=== PATIENT | female | born 1950 | race African-American/Black ===

== ENCOUNTER 2017-10-30 10:42 | Emergency (ER) | payer MEDICARE, MEDICAID ==
--- NOTE | 2017-10-30 13:03 | RAD ---
ONE VIEW ABDOMEN: HISTORY: PEG tube placement. COMPARISON: 01/30/2015 FINDINGS: Single view abdomen demonstrates opacification of the stomach, after the administration of Gastrograf in via a PEG tube. A large calcification in the right upper quadrant is redemonstrated and is presumed to be a gallstone . There is a scattered amount of fecal material. Correlate for constipation. IMPRESSION: 1. Contrast opacification of the stomach via the percutaneous endoscopic gastrostomy tube. 2. Constipation. 3. Possible large gallstone in the right upper quadrant. POS: [facility]
== END 2017-10-30 13:30 | disposition home or self-care (01) ==
LOC: ERS 10:42
DX: Z43.1 Encounter for attention to gastrostomy (principal); K59.00 Constipation, unspecified; K21.9 Gastro-esophageal reflux disease without esophagitis; I69.320 Aphasia following cerebral infarction; E11.9 Type 2 diabetes mellitus without complications; E78.5 Hyperlipidemia, unspecified; I10 Essential (primary) hypertension; G40.909 Epilepsy, unspecified, not intractable, without status epilepticus; F41.9 Anxiety disorder, unspecified; F32.9 Major depressive disorder, single episode, unspecified; D51.9 Vitamin B12 deficiency anemia, unspecified; Z79.82 Long term (current) use of aspirin; Z79.02 Long term (current) use of antithrombotics/antiplatelets; Z79.84 Long term (current) use of oral hypoglycemic drugs; Z79.899 Other long term (current) drug therapy
CPT/HCPCS: 43760; 74018

== ENCOUNTER 2018-07-24 11:43 | Emergency (ER) | payer MEDICARE, MEDICAID ==
--- NOTE | 2018-07-24 13:29 | RAD ---
ABDOMEN 1 VIEW: Date: 07/24/18 HISTORY: 68-year-old female with history of PEG tube evaluation. COMPARISON: 10/30/17. FINDINGS: Contrast media was introduced through the PEG tube, which enters the stomach. Stable large calcificat ion right upper quadrant. Solid fecal material in the colon with dilated rectum, evidence for obstipa tion. IMPRESSION: Contrast media introduced through the PEG tube enters the stomach. Evidence for obstipation with dila derrick fecal-filled rectum. Stable right upper quadrant calcification. POS: [facility]
== END 2018-07-24 13:58 | disposition home or self-care (01) ==
LOC: ERS 11:43
DX: Z43.1 Encounter for attention to gastrostomy (principal); D64.9 Anemia, unspecified; K21.9 Gastro-esophageal reflux disease without esophagitis; Z86.73 Personal history of transient ischemic attack (TIA), and cerebral infarction without residual deficits; E11.9 Type 2 diabetes mellitus without complications; E78.5 Hyperlipidemia, unspecified; I10 Essential (primary) hypertension; D51.9 Vitamin B12 deficiency anemia, unspecified; G40.909 Epilepsy, unspecified, not intractable, without status epilepticus; F41.9 Anxiety disorder, unspecified; F32.9 Major depressive disorder, single episode, unspecified; Z79.899 Other long term (current) drug therapy; Z79.82 Long term (current) use of aspirin; Z79.84 Long term (current) use of oral hypoglycemic drugs
CPT/HCPCS: 74018; A4353

== ENCOUNTER 2018-11-02 06:16 | Emergency (ER) | payer MEDICARE, MEDICAID ==
--- NOTE | 2018-11-02 09:08 | RAD ---
ABDOMEN 1 VIEW TUBE CHECK: DATE: 11/02/2018. HISTORY: Evaluation for PEG tube replacement as PEG tube was inadvertently removed. FINDINGS: A single AP abdominal radiograph is submitted. Gastrostomy tube is noted in place with the limb port ion of the tube appearing to be within the region of the pylorus of the stomach. Contrast injection demonstrates contrast within the duodenum and loops of proximal jejunum. Large calcification overlyi ng the right upper quadrant is again seen and shown to represent a gallbladder calculus on prior CT e xams. The bowel gas pattern is nonspecific. There is moderately large amount of retained fecal material se en overlying the region of the rectum. Phleboliths and vascular calcifications overlie the pelvis. IMPRESSION: 1. Gastrostomy tube noted in place with distal tip seen in the region of the most distal aspect pylo jose of the stomach. Contrast injection demonstrates contrast within the duodenum and proximal jejunu m. There is no extravasation of contrast seen. 2. Calcification in the right upper quadrant shown to represent gallbladder calculus. 3. Moderate to large amount of retained fecal material within the rectum. POS: [facility]
== END 2018-11-02 11:42 ==
LOC: ERS 06:16
DX: Z43.1 Encounter for attention to gastrostomy (principal); K21.9 Gastro-esophageal reflux disease without esophagitis; I10 Essential (primary) hypertension; D51.9 Vitamin B12 deficiency anemia, unspecified; G40.909 Epilepsy, unspecified, not intractable, without status epilepticus; F41.9 Anxiety disorder, unspecified; F32.9 Major depressive disorder, single episode, unspecified; Z79.899 Other long term (current) drug therapy; Z79.84 Long term (current) use of oral hypoglycemic drugs; Z79.82 Long term (current) use of aspirin
CPT/HCPCS: 43762; 76000

== ENCOUNTER 2018-12-03 17:49 | Inpatient (IN) | payer MEDICARE, MEDICAID ==
[~2018-12-03 17:49] MED LIST: ISOVUE-370 76%-LOCM 1 ML ONE
[2018-12-03] MEDS ORDERED: Acetaminophen 650 MG Suppository ONE (19:00)
[2018-12-03] MEDS ORDERED: Ondansetron PF 4 MG/2 ML Vial ONE (19:00)
[2018-12-03 19:01] LABS: Bilirubin Negative (Negative); Blood, Urine Trace (Negative); Clarity CLEAR (Clear); Glucose, Urine (Dipstick) 500 mg/dL (Negative); Leukocyte Negative (Negative); Nitrite Negative (Negative); Protein, Urine (Dipstick) 100 mg/dL (Neg-Trace); Specific Gravity, Urine 1.015 (1.002-1.036); Urobilinogen 0.2 mg/dL (0.2-1.0); pH, Urine 6.5 (5.0-9.0)
[2018-12-03 19:02] LABS: Bacteria/HPF None Seen HPF (None Seen); Hyaline Casts/LPF 7-10 HYALINE CAST LPF (0-3 Hyaline); Pathc Cast-AUWi Flag 2.47 (0-2.49); RBC/HPF 0-3 HPF (0-3); Squamous Epithelial 0-3 HPF (0-3); WBC/HPF 0-3 HPF (0-3)
[2018-12-03 19:03] LABS: Hemoglobin 15.3 g/dL (12.0-16.0); Mean Corpuscular HGB CONC 30.6 g/dL (32.0-36.0); Mean Corpuscular Hemoglobin 22.2 pg (27.0-31.0); Mean Corpuscular Volume 72.5 fL (78.0-98.0); Mean Platelet Volume 14.2 fL (7.4-10.4); Platelet Count 209 thou/uL (130-400); RBC Distribution Width 14.7 % (11.5-14.5); Red Blood Cell (RBC) Count 6.91 mill/uL (4.20-5.40); White Blood Cell (WBC) Count 17.2 thou/uL (4.8-10.8)
[2018-12-03 19:21] LABS: Anisocytosis SLIGHT = 6-15 cells (100X) (0-5/hpf); Band 9 % (5-11); Lymphocytes 3 % (21-51); MDiff Complete? YES; Microcytosis SLIGHT = 6-15 cells (100X) (0-5/hpf); Monocytes 3 % (0-10); Neutrophil 85 % (42-75); Platelet Morphology Comment Appears Adequate
[2018-12-03 19:22] LABS: ALT (SGPT) 8 U/L (8-55); AST (SGOT) 19 U/L (5-34); Albumin 4.5 g/dL (3.4-4.8); Alkaline Phosphatase 105 U/L (40-150); Anion Gap 20 mmol/L (10-20); BUN (Urea Nitrogen) 32 mg/dL (9.8-20.1); Bilirubin, Total 0.5 mg/dL (0.2-1.2); Calc. Creatinine Clearance 0 mL/min (70-130); Calcium 11.2 mg/dL (7.8-10.44); Carbon Dioxide 26 mmol/L (23-31); Chloride 101 mmol/L (98-107); Estimated GFR-MDRD 51; Globulin 5.3 g/dL (2.4-3.5); Glucose 297 mg/dL (80-115); Potassium 5.5 mmol/L (3.5-5.1); Protein, Total 9.8 g/dL (6.0-8.3); Sodium 141 mmol/L (136-145)
[2018-12-03] MEDS ORDERED: Piperacillin/Tazobactam 4.5 GM VIAL ONE (19:32)
[2018-12-03 19:45] LABS: CKMB 0.7 ng/mL (0-6.6)
--- NOTE | 2018-12-03 20:26 | RAD ---
ONE VIEW CHEST: Comparison: 02-18-17 History: Fever. FINDINGS: Atherosclerosis of the aorta. Normal cardiac silhouette. The pulmonary vessels and hilum are normal. Costophrenic angles are clear. Lung volumes are diminished, without consolidation or mass. No pneumot horax or osseous abnormalities. IMPRESSION: No acute cardiopulmonary process. POS: [facility]
--- NOTE | 2018-12-03 21:22 | CT ---
CT ABDOMEN AND PELVIS WITH CONTRAST: History: Abdominal pain. Comparison: 10-19-14 FINDINGS: There is some mild atelectasis in the lung bases. No pericardial effusion. Cholelithiasis is present. No significant pericholecystic fluid. Moderate bilateral hydroureteronephrosis. There is massive dilatation of the urinary bladder and the hydronephrosis may be physiologic due to increased back pressure. There is also massive dilatation of the rectal vault measuring approximately 10 cm with large volume stool. No evidence of obstruction. Ostomy tube is in place. Celiac trunk and superior mesenteric arteries are patent. Advanced arthropathy of the lower lumbar sp ine. No acute osseous abnormality. Liver is unremarkable. Spleen is unremarkable. Pancreas is without acute abnormality. No retroperitoneal adenopathy. IMPRESSION: 1. Moderate bilateral hydroureteronephrosis likely physiologic due to the massive dilatation of the u rinary bladder. Tovar catheter decompression recommended. 2. Marked dilatation of the rectal vault measuring up to 10 cm with thin wall. Stool disimpaction rec ommended. 3. Cholelithiasis without CT evidence of acute cholecystitis. POS: [facility]
[2018-12-03 22:33] LABS: Troponin I 0.078 ng/mL (< 0.028)
[2018-12-03 22:56] LABS: Lactic Acid 3.9 mmol/L (0.5-2.2)
[2018-12-04 01:24] LABS: Troponin I 0.098 ng/mL (< 0.028)
[2018-12-04] MEDS ORDERED: Senokot S 8.6-50 MG TAB PO PRN (07:33)
[2018-12-04] MEDS ORDERED: Loperamide HCl 2 MG CAP PER TUBE PRN (07:44)
[2018-12-04] MEDS ORDERED: Milk Of Magnesia 30 ML UDCUP PER TUBE PRN (07:44)
[2018-12-04] MEDS ORDERED: Bisacodyl 10 MG SUPP PR PRN (07:44)
[2018-12-04] MEDS ORDERED: Ondansetron ORAL SOLN. 4 MG/5 ML UDCUP PER TUBE PRN (07:44)
[2018-12-04] MEDS ORDERED: Acetaminophen 325 MG TAB PER TUBE PRN (07:44)
[2018-12-04] MEDS ORDERED: Polyethylene Glycol 3350 17 GM Packet PER TUBE PRN (07:44)
[2018-12-04] MEDS ORDERED: Dextrose 50% Abboject 50 ML SYRINGE SLOW IVP PRN (08:06)
[2018-12-04] MEDS ORDERED: Dextrose 5% in Water 1,000 ML IV PRN (08:06)
[2018-12-04] MEDS ORDERED: VIT C PER TUBE SCH (09:00)
[2018-12-04] MEDS ORDERED: Lisinopril 10 MG TAB PER TUBE SCH (09:00)
[2018-12-04] MEDS ORDERED: ASCORBATE CALCIUM SODIUM PER TUBE SCH (09:00)
[2018-12-04] MEDS ORDERED: [UNRECOGNIZED DRUG - OTHER] PER TUBE SCH (09:00)
[2018-12-04] MEDS ORDERED: Vancomycin HCl 1 GM in Premix Bag 1 BAG IVPB SCH (09:00)
[2018-12-04] MEDS ORDERED: Non-Formulary Item 1 EACH (Cyanocobalamin (Vitamin B-12) [Vitamin B-12] 500 MCG) PER TUBE SCH (09:00)
[2018-12-04] MEDS ORDERED: Vancomycin HCl 1 GM in Sodium Chloride 0.9% 250 ML 250 ML IVPB SCH (09:00)
[2018-12-04] MEDS ORDERED: Aspirin 81 mg Enteric Coated Tablet PER TUBE SCH (09:00)
[2018-12-04] MEDS ORDERED: FERROUS SULFATE 220 MG PER TUBE SCH (09:00)
[2018-12-04] MEDS ORDERED: NUT TX GLUC INTOLER LAC FR SOY PER TUBE SCH (09:00)
[2018-12-04] MEDS ORDERED: SACCHAROMYCES BOULARDII 250 MG PER TUBE SCH (09:00)
[2018-12-04] MEDS ORDERED: Amlodipine 10 MG TAB PER TUBE SCH (09:00)
[2018-12-04] MEDS: metFORMIN 500 MG TAB PER TUBE SCH ×2 (09:02→17:42)
[2018-12-04] MEDS: Cyanocobalamin (Vitamin B-12) 1,000 MCG TAB PER TUBE SCH (09:02)
[2018-12-04] MEDS: Atorvastatin Calcium 10 MG TAB PER TUBE SCH (09:02)
[2018-12-04] MEDS: Sodium Chloride 0.9% 1,000 ML IV SCH ×2 (09:02→18:14)
[2018-12-04 09:03] LABS: #Lymphocytes 1.3 thou/uL (1.20-3.40); #Neutrophils 9.6 thou/uL (1.40-6.50); %Basophils 0.2 % (0.0-1.0); %Eosinophils 0.2 % (0.0-10.0); %Lymphocytes 10.9 % (21.0-51.0); %Monocytes 8.3 % (0.0-10.0); %Neutrophils 80.3 % (42.0-75.0); Hemoglobin 13.1 g/dL (12.0-16.0); Mean Corpuscular HGB CONC 29.5 g/dL (32.0-36.0); Mean Corpuscular Volume 74.5 fL (78.0-98.0); Mean Platelet Volume 13.7 fL (7.4-10.4); Platelet Count 172 thou/uL (130-400); RBC Distribution Width 14.4 % (11.5-14.5); Red Blood Cell (RBC) Count 5.95 mill/uL (4.20-5.40)
[2018-12-04] MEDS: Amlodipine 5 MG TAB PER TUBE SCH (09:03)
[2018-12-04] MEDS: Aspirin Chewable 81 MG TAB PER TUBE SCH (09:03)
[2018-12-04] MEDS: Pantoprazole 40 MG GRANULES PACKET PER TUBE SCH (09:03)
[2018-12-04] MEDS: Metoprolol Tartrate 100 MG TAB PER TUBE SCH ×2 (09:04→21:24)
[2018-12-04] MEDS: Lisinopril 20 MG TAB PER TUBE SCH (09:04)
[2018-12-04] MEDS: Saccharomyces boulardii 250 MG CAP PER TUBE SCH (09:04)
[2018-12-04] MEDS: Famotidine/PF 20 mg/2ml Vial SLOW IVP SCH ×2 (09:04→21:23)
[2018-12-04] MEDS: Loratadine 5 MG/5 ML UDCUP PER TUBE SCH (09:05)
[2018-12-04] MEDS: Ascorbic Acid 500 mg Chewable Tablet PER TUBE SCH ×2 (09:05→21:24)
[2018-12-04 09:21] LABS: Anion Gap 18 mmol/L (10-20); BUN (Urea Nitrogen) 37 mg/dL (9.8-20.1); Calc. Creatinine Clearance 32 mL/min (70-130); Calcium 10.2 mg/dL (7.8-10.44); Carbon Dioxide 25 mmol/L (23-31); Chloride 105 mmol/L (98-107); Estimated GFR-MDRD 46; Glucose 216 mg/dL (80-115); Potassium 4.6 mmol/L (3.5-5.1); Sodium 143 mmol/L (136-145)
[2018-12-04 09:44] LABS: Hypochromia SLIGHT = 6-15 cells (100X) (0-5/hpf); MDiff Complete? YES; Microcytosis SLIGHT = 6-15 cells (100X) (0-5/hpf); Platelet Morphology Comment Appears Adequate; Polychromasia SLIGHT = 2-3 cells (100X) (0-2/hpf)
--- NOTE | 2018-12-04 10:28 | HP ---
CHIEF COMPLAINTS: Vomiting, fever, and abdominal distention. HISTORY OF PRESENT ILLNESS: The patient is a 68-year-old female, [facility] resident from [facility], who was found to have fever yesterday at the [facility] up to 101. She started vomiting. She had abdominal distention and she was sent out to the emergency room for further evaluation. In the emergency room, she was found to have possible sepsis. She received vancomycin and Zosyn and IV fluids and she is getting admitted to the hospital for further management of her problem. PAST MEDICAL HISTORY: Positive for; 1. CVA. 2. Diabetes mellitus. 3. Hyperlipidemia. 4. Hypertension. 5. Vitamin B12 deficiency with anemia. 6. Failure to thrive. 7. Epilepsy. 8. Thrombocytopenia. 9. Hydronephrosis. 10. History of colitis. PAST SURGICAL HISTORY: 1. Cholecystectomy. 2. Hysterectomy. 3. Tubal ligation. 4. G-tube placement. PSYCHIATRIC HISTORY: Includes anxiety and major depressive disorder. SOCIAL HISTORY: [facility]. She does not smoke, drink, or take any illicit drugs. ALLERGIES: NONE. CURRENT MEDICATIONS: Please refer to the medications list. FAMILY HISTORY: Father of heart trouble in his 80s. Mother of CVA in her 80s too. Power of junior manufacturing engineer is Kurt Miranda. PRIMARY CARE PHYSICIAN: Dr. Campos. REVIEW OF SYSTEMS: Unobtainable secondary to the patient's aphasia from the previous stroke. PHYSICAL EXAMINATION: VITAL SIGNS: Blood pressure is 113/59, pulse is 89, temperature is 98.6, respiratory rate 15, and O2 saturation 100 on room air. GENERAL: She is not in any distress during my visit. HEENT: Head is atraumatic and normocephalic. Pupils are responding to light properly. Sclerae are nonicteric. Conjunctivae are somewhat palish. Oral mucosa is slightly dry. NECK: Supple. LUNGS: Clear. HEART: S1 and S2 normal. No S3. No S4. No any murmur. ABDOMEN: Soft, nontender, and nondistended. Bowel sounds are present. No organomegaly. EXTREMITIES: No clubbing, cyanosis, or edema. NEUROLOGIC: She follows my simple commands. She is able to move her all 4 extremity. Maybe there is slight weakness in her right upper and right lower extremity. LABORATORY DATA: Labs showed white count of 17.2, hemoglobin of 15.3, hematocrit 50.0, platelet count is 209, and 85% of neutrophils. Chemistry showed sodium of 141, potassium 5.4, chloride 101, CO2 of 26, BUN 32, creatinine 1.27, lactic acid is 3.9, and calcium 11.2. Three troponins are 0.059, 0.078, and 0.098. Total protein 9.8 and globulin 5.3. Fecal occult blood test positive. EKG normal sinus rhythm, ventricular rate in the 80s, ST-segment depression in lead I and aVL of unclear etiology. Chest x-ray slight elevation of the right diaphragm with no infiltrates. CT of the abdomen and pelvis showed; 1. Moderately bilateral hydroureteronephrosis. 2. Marked dilatation of the rectal vault measuring up to 10 cm with thin wall. Stool disimpaction was recommended by radiologist. 3. Cholelithiasis without CT evidence of acute cholecystitis. Urinalysis showed 100 of protein, 500 of glucose, trace of blood, and 7 to 10 hyaline casts, negative for leukocyte esterase and negative for nitrites. IMPRESSION: 1. Vomiting with fever and abdominal distention, suspected sepsis. Blood cultures and urine cultures were done. She was started on vancomycin and Zosyn in the emergency room. 2. Fecal occult blood test in the setting of the patient, who is on Plavix for her previous stroke. We will get Gastroenterology evaluation by Dr. Garibay, who is on-call today. 3. Being chronic microcytic anemia, which could be related to the previous occult blood test positive. 4. Renal insufficiency, acute most likely secondary to dehydration. 5. Dehydration. 6. Hyperkalemia again most likely secondary to renal insufficiency. 7. Hypercalcemia. I suspect that this is going to get better with IV fluids. 8. Elevated troponin I, which is mild and we will follow this closely. The patient is full code. PLAN: Plan is full admission. Condition is fair. Activity is bedrest. IV normal saline at 100 mL/h. She will be fed through the G-tube with the same formula what she was getting [facility] the [facility]. We will continue her vancomycin and Zosyn. We will get Pharmacy to follow the dosing on vancomycin. We will have the results on blood cultures and urine cultures in the next 48 hours. We will do Accu-Cheks every 6 hours and use the sliding scale with insulin coverage mild for now, although her glycemia is up to 297. We will continue her home medications except for Plavix and aspirin and we will do SCDs for DVT prophylaxis. Obtain Urology consultation with Dr. Stnoe for hydronephrosis and urinary retention. The patient has a Tovar in the bladder and her abdominal distention improved. Job ID: [id number]
[2018-12-04] MEDS: Piperacillin/Tazobactam 3.375 GM in Sodium Chloride 0.9% 100 ML IVPB SCH ×2 (11:27→17:41)
[2018-12-04] MEDS: HumaLOG 300 UNITS/3 ML VIAL SC PRN ×2 (13:08→21:25)
--- NOTE | 2018-12-04 15:48 | CON ---
DATE OF CONSULTATION: 12/04/2018 REASON FOR CONSULTATION: Heme-positive stool. HISTORY OF PRESENT ILLNESS: Jacque Miranda is a 68-year-old woman. She has a history of prior CVA and seizure disorder. She is aphasic from this. In 2011, my colleague, Dr. Tatum placed a PEG tube for failure to thrive. She has been evaluated since. In August 2013, she had a colonoscopy showing only some edema in the cecum and diverticulosis, but otherwise normal colonoscopy. Her EGD in 2011 was otherwise normal. She was hospitalized in January 2017 and seen briefly by Dr. Jacobson for complaint of blood in the stool and some acute blood loss anemia. A tagged RBC scan at that time was negative. It was decided not to pursue any endoscopic investigation. As the patient had stabilized, the tagged scan was negative and due to her significant comorbidities and risk with taking any bowel prep. The patient does have a chronic microcytic anemia consistent with anemia of chronic disease. She lives in [facility]. She was admitted to the hospital last night because yesterday she spiked fevers up to 101, had some abdominal distention and vomiting. Upon presentation, she was started on broad-spectrum antibiotics and IV fluids. A CT of the abdomen and pelvis last night demonstrated massive dilation of the urinary bladder and bilateral hydronephrosis. She also had dilation of the rectal vault up to 10 cm with stool in the rectal vault. A Tovar catheter was placed and her abdominal distention significantly improved. She has not had any further vomiting. She actually had a bowel movement in the emergency department and small smear earlier today. There is no report of any melena or hematochezia. The patient today indicates that she is feeling a lot better, not having any abdominal pain. Her hemoglobin is 13.1, which is above her baseline. FOBT was performed and was positive. REVIEW OF SYSTEMS: Unable to obtain full review of systems as the patient is aphasic. PAST MEDICAL HISTORY: CVA, aphasia, failure to thrive, epilepsy, depression, hysterectomy, tubal ligation, diabetes, hypertension, hyperlipidemia, anemia of chronic disease, and PEG tube placement in 2011. SOCIAL HISTORY: She was at [facility]. No smoking, alcohol, or drug use. ALLERGIES: NONE. MEDICATIONS: 1. Norvasc. 2. Vitamin C. 3. Aspirin 81 mg daily. 4. Lipitor. 5. Vitamin B12. 6. Pepcid 20 mg IV q.12 hours. 7. Ferrous sulfate 300 mg per tube b.i.d. 8. Insulin sliding scale. 9. Lisinopril. 10. Claritin. 11. Milk of magnesia p.r.n. 12. Metformin. 13. Metoprolol. 14. Protonix 40 mg daily. 15. Zosyn IV. 16. Florastor. 17. Vancomycin IV. 18. Senna p.r.n. 19. MiraLAX 17 g p.r.n. FAMILY HISTORY: Noncontributory. No known family history of GI malignancy. PHYSICAL EXAMINATION: VITAL SIGNS: Temperature 98.9, pulse 88, blood pressure 119/63, and 96% oxygen saturation on room air. GENERAL: A 68-year-old woman, lying in bed comfortably. MENTAL: She is alert and oriented. She is able to answer questions and affirmative negative, but she is aphasic. NEUROLOGIC: Cranial nerves 2 through 12 intact bilaterally. SKIN: No jaundice. No rashes were palpable. EYES: No scleral icterus. Extraocular movements intact. ENT: Mucous membranes are moist. No oral lesions. LYMPH: No submandibular or supraclavicular lymphadenopathy. THYROID: Nontender to palpation. HEART: Regular rate and rhythm. LUNGS: Clear to auscultation bilaterally. ABDOMEN: Nondistended. Bowel sounds present. Soft and nontender to palpation throughout. PEG tube in the left upper quadrant looks good. EXTREMITIES: No peripheral edema. RECTAL: The patient has external hemorrhoids. Digital rectal exam was performed. The patient has some soft stool in the rectal vault, but no impaction. The stool is dark in color consistent with her iron supplementation. LABORATORY STUDIES: Hemoglobin 13.1, MCV 74.5, WBC 12, platelets 172. Sodium 143, potassium 4.6, BUN 37, creatinine 1.38, glucose 238. Troponin 0.098. LFTs all normal. IMAGING STUDIES: CT of the abdomen and pelvis is detailed in the HPI. ASSESSMENT AND PLAN: 1. Heme-positive stool. 2. Chronic constipation. 3. Chronic anemia, above baseline at this point. The patient had heme-positive stool in the context of long-term Plavix use. She has had EGD and colonoscopy within the past 6 to 7 years. Currently, there is no evidence of overt GI bleeding and her hemoglobin is above baseline. The positive FOBT result really has no significance in this context. I do not think we should pursue any endoscopic investigation. Continue with supportive cares, bowel regimen for chronic constipation. GI will sign off, please call back anytime with questions or concerns. Job ID: [id number]
[2018-12-04] MEDS ORDERED: Vancomycin HCl 750 MG in Sodium Chloride 0.9% 250 ML 250 ML IVPB SCH (19:00)
--- NOTE | 2018-12-04 19:01 | CON ---
DATE OF CONSULTATION: 12/04/2018 REASON FOR CONSULTATION: Consultation is requested for urinary retention with bilateral hydronephrosis. The patient actually saw Dr. Brody for the same thing in 2016, at which point she had 1.2 L retention, although I do not see any followup and he is not in town currently to see the patient himself or to give me further information, but the daughter reports that she has not had a catheter this whole time and that she has normally been voiding on her own. They deny any concerns for prior infections, blood in the urine, or kidney stones. Her voids go into depends as she is not ambulatory. PAST MEDICAL HISTORY: Significant for; 1. CVA in 2009, for which she has aphasia and minimal mobility. 2. Diabetes for 10-20 years. 3. Hypertension. 4. High cholesterol. 5. Vitamin B deficiency. 6. Epilepsy, but her seizures are remote. 7. Thrombocytopenia. 8. Colitis. PAST SURGICAL HISTORY: Includes; 1. Gallbladder. 2. Appendectomy. 3. G-tube. 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 She has tubal and hysterectomy, but not for cancer. SOCIAL HISTORY: Significant for living in a correction currently. She does not smoke, drink, or use drugs. REVIEW OF SYSTEMS: She has never had a colonoscopy. She had a mammogram remotely as well as Pap smear remotely and both were normal. She is likely due for a mammogram and possibly colonoscopy. She does not normally walk. She does still have constipation. She does not have any chest pain. She does have some phlegm that she coughs up on occasion. She has been nauseous with some vomiting and abdominal pain, but the abdominal pain seems better now. There was concern about fever, high blood pressure and elevated pulse upon admission. ALLERGIES: NONE. MEDICATIONS: Include; 1. Amlodipine 5 mg. 2. Vitamin C. 3. 81 mg aspirin. 4. Lipitor 10 mg. 5. Vitamin B12 of 500 mcg daily. 6. Pepcid 20 mg. 7. Iron 300 b.i.d. 8. Humalog per sliding scale currently. 9. Lactulose. 10. Zestril 20 mg. 11. Imodium. 12. Loratadine 10 mg. 13. Magnesium hydroxide as needed. 14. Metformin 500 b.i.d. 15. Metoprolol 100 b.i.d. 16. Zofran as needed. 17. Protonix. 18. Currently, she is receiving vancomycin and Zosyn. FAMILY HISTORY: Significant for mother dying of a stroke in her 80s and father dying of coronary artery disease around the 80s as well. PHYSICAL EXAMINATION: VITAL SIGNS: Temperature 98.6, heart rate 89, blood pressure 113/59, and saturating 100% on room air, although she does have nasal cannula currently. GENERAL: She is lying in the bed comfortable and she does understand and can speak very minimally. NECK: She has no JVD. HEENT: She has no scleral icterus. SKIN: She is no diaphoresis. HEART: Regular rate and rhythm. No murmurs, gallops, or rubs. LUNGS: Clear to auscultation bilaterally with poor inspiratory effort. ABDOMEN: Distended, but still soft and nontender, but tympanic with hyperactive bowel sounds. No CVA tenderness. EXTREMITIES: No lower extremity edema. GENITOURINARY: Tovar catheter was in, draining yellow urine and there was no recording of the amount. LABORATORY VALUES: A CBC that was 17.2 for white count, now down to 12.0. BUN and creatinine are 37 and 1.38, previously was 1.27. Urinalysis from admission shows 0 to 3 wbc's, 0 to 3 rbc's, no bacteria, 500 glucose, 100 protein. Prior urinalysis from 01/2017 was the same. Prior urinalysis from 01/2016 showed too numerous to count wbc's, 4+ bacteria, and grew Enterococcus cloaca. There are prior infections noted before that. CT scan from 12/03/2018 with contrast showed a significantly distended bladder, infected probably look like it was distended with at least 3 L goes well above the umbilicus with associated bilateral hydroureteronephrosis, but really just the renal plevises as opposed to the calices. There was good uptake with contrast in both kidneys. No obvious stones or masses. The rectum was significantly enlarged and had measurements of 8.5 cm x 10 cm. ASSESSMENT: A 68-year-old female with constipation and retention with now significant bladder distention, which is likely not new and more chronic, and therefore my concern is she is unlikely to empty adequately in the near future if ever. I reviewed this with her and the family. For now, I would put her on tamsulosin to keep an indwelling going and of course make sure that she is not constipated at any point in time, but I would leave the catheter in for at least a month before giving her a voiding trial in the office. We reviewed this with the patient and her daughter and . Job ID: [id number] MTDD
[2018-12-04] MEDS: Tamsulosin HCl 0.4 MG CAP PO SCH (21:24)
[2018-12-05] MEDS: Piperacillin/Tazobactam 3.375 GM in Sodium Chloride 0.9% 100 ML IVPB SCH ×4 (00:54→18:00)
[2018-12-05 06:34] LABS: Anion Gap 11 mmol/L (10-20); BUN (Urea Nitrogen) 46 mg/dL (9.8-20.1); Calc. Creatinine Clearance 35 mL/min (70-130); Calcium 8.5 mg/dL (7.8-10.44); Carbon Dioxide 25 mmol/L (23-31); Chloride 111 mmol/L (98-107); Estimated GFR-MDRD 51; Glucose 170 mg/dL (80-115); Sodium 143 mmol/L (136-145)
[2018-12-05 06:51] LABS: #Eosinphils 0.1 thou/uL (0.0-0.7); #Lymphocytes 1.8 thou/uL (1.20-3.40); #Monocytes 0.9 thou/uL (0.11-0.59); #Neutrophils 7.2 thou/uL (1.40-6.50); %Basophils 0.4 % (0.0-1.0); %Eosinophils 0.8 % (0.0-10.0); %Lymphocytes 18.1 % (21.0-51.0); %Neutrophils 71.6 % (42.0-75.0); Band 1 % (5-11); Hemoglobin 9.2 g/dL (12.0-16.0); Hypochromia SLIGHT = 6-15 cells (100X) (0-5/hpf); Lymphocytes 15 % (21-51); MDiff Complete? YES; Mean Corpuscular HGB CONC 30.8 g/dL (32.0-36.0); Mean Corpuscular Hemoglobin 22.9 pg (27.0-31.0); Mean Corpuscular Volume 74.3 fL (78.0-98.0); Mean Platelet Volume 12.3 fL (7.4-10.4); Microcytosis SLIGHT = 6-15 cells (100X) (0-5/hpf); Monocytes 8 % (0-10); Neutrophil 76 % (42-75); Ovalocytes MODERATE= 6-15 cells (100X) (0-1/hpf); Platelet Count 128 thou/uL (130-400); Platelet Morphology Comment Appears Decreased; Polychromasia SLIGHT = 2-3 cells (100X) (0-2/hpf); RBC Distribution Width 13.9 % (11.5-14.5); Red Blood Cell (RBC) Count 4.01 mill/uL (4.20-5.40); Tear Drops SLIGHT = 2-5 cells (100X) (0-1/hpf)
[2018-12-05] MEDS: Saccharomyces boulardii 250 MG CAP PER TUBE SCH (08:42)
[2018-12-05] MEDS: Famotidine/PF 20 mg/2ml Vial SLOW IVP SCH ×2 (08:42→20:19)
[2018-12-05] MEDS: Loratadine 5 MG/5 ML UDCUP PER TUBE SCH (08:42)
[2018-12-05] MEDS: Ascorbic Acid 500 mg Chewable Tablet PER TUBE SCH ×2 (08:42→20:19)
[2018-12-05] MEDS: Aspirin Chewable 81 MG TAB PER TUBE SCH (08:42)
[2018-12-05] MEDS: Lisinopril 20 MG TAB PER TUBE SCH (08:43)
[2018-12-05] MEDS: Amlodipine 5 MG TAB PER TUBE SCH (08:43)
[2018-12-05] MEDS: Cyanocobalamin (Vitamin B-12) 1,000 MCG TAB PER TUBE SCH (08:43)
[2018-12-05] MEDS: Tamsulosin HCl 0.4 MG CAP PO SCH ×2 (08:43→20:20)
[2018-12-05] MEDS: Metoprolol Tartrate 100 MG TAB PER TUBE SCH ×2 (08:43→20:19)
[2018-12-05] MEDS: Pantoprazole 40 MG GRANULES PACKET PER TUBE SCH (08:43)
[2018-12-05] MEDS: metFORMIN 500 MG TAB PER TUBE SCH ×2 (08:43→16:17)
[2018-12-05] MEDS: Atorvastatin Calcium 10 MG TAB PER TUBE SCH (08:44)
[2018-12-05] MEDS: Sodium Chloride 0.9% 1,000 ML IV SCH ×2 (08:44→20:17)
[2018-12-05] MEDS: HumaLOG 300 UNITS/3 ML VIAL SC PRN (11:43)
[2018-12-05 13:22] VITALS: BMI 21.5
--- NOTE | 2018-12-05 15:02 | PRG ---
DATE OF SERVICE: 12/05/2018 SUBJECTIVE: The patient is seen and examined at the bedside. There were no any unexpected events overnight. OBJECTIVE: VITAL SIGNS: Blood pressure is 109/52, pulse is 77, temperature is 98.7, maximal temperature is 99.2. HEENT: Her pupils respond to light properly. Sclerae are nonicteric. Oral mucosa is slightly dry. LUNGS: Breath sounds diminished at both bases. HEART: S1 and S2, somewhat irregular. No S3. No S4. ABDOMEN: Soft, nontender. The tube is in place. EXTREMITIES: No clubbing, cyanosis, or edema. NEUROLOGICAL: The patient is showing very advanced dementia, but she follows my basic commands. She is able to move her all 4 extremities. LABORATORY DATA: Labs showed white count of 10.0, hemoglobin 9.2, hematocrit 29.8, and platelet count 128,000, neutrophils 76%. Sodium of 143, potassium 4.0, chloride 111, CO2 of 25, BUN 46, and creatinine 1.26. Glycemia is ranging from 157 to 208. Microbiology; blood cultures negative x48 hours. Urine culture negative. Stool occult blood test came back positive. IMPRESSION: 1. Vomiting with fever and abdominal distention. Sepsis was suspected. Blood cultures and urine cultures negative so far. We will continue vancomycin and Zosyn today. Most likely, if they are still negative tomorrow, we will consider deescalating the treatment. 2. Fecal occult blood test positive in the setting of the patient, who is on Plavix for previous stroke. Dr. Shorty Garibay saw the patient for GI evaluation, and he wants to take conservative path, but the patient's hemoglobin dropped significantly since yesterday, and despite of using Protonix, I do not see any significant GI blood loss. 3. Renal insufficiency with IV hydration. No change. 4. Dehydration, improved. 5. Hyperkalemia, improved. 6. Hypercalcemia, resolved with IV hydration. 7. Elevated troponin I x2, suggestive of some most likely demand ischemia. PLAN: Plan is to continue the feeding. There are no any residuals, and we will evaluate her condition tomorrow and most likely deescalate antibiotics. Job ID: [id number]
[2018-12-05 18:09] LABS: Hemoglobin 9.7 g/dL (12.0-16.0)
--- NOTE | 2018-12-05 19:26 | PRG ---
DATE OF SERVICE: 12/05/2018 SUBJECTIVE: Ms. Miranda did have a couple of bowel movements today reported by nursing. The stools have been soft. She has had no bloody stools. OBJECTIVE: VITAL SIGNS: Temperature 98.9, pulse 80, and blood pressure 116/57. GENERAL: She is in no acute distress. LUNGS: Clear to auscultation bilaterally. HEART: Regular rate and rhythm. ABDOMEN: Soft, nontender, and nondistended. Bowel sounds are present. EXTREMITIES: No lower extremity edema. IMPRESSION: Anemia. Her hemoglobin is 9.7 this afternoon. She has had no overt bleeding. Her baseline hemoglobin is not known. Her last hemoglobin in October 2017 was 10 and in 2017 was 8.8. She was likely extremely dehydrated and hemoconcentrated on admission. There is no evidence of retroperitoneal bleed by CT scan. RECOMMENDATIONS: Check iron studies. If she is iron deficient, then discussed with the family option for upper and lower endoscopy. Job ID: [id number]
[2018-12-05] MEDS ORDERED: Vancomycin HCl 1 GM in Premix Bag 1 BAG IVPB SCH (20:00)
--- NOTE | 2018-12-05 22:32 | PRG ---
DATE OF SERVICE: 12/05/2018 SUBJECTIVE: The patient has had no new incidents overnight and has no complaints of pain. She has not had any significant bowel movements nor concern for any blood from the GI tract. OBJECTIVE: VITAL SIGNS: She has been afebrile. T-max 98.9, heart rate 80, saturating 96% on room air with blood pressure of 116/57. She approximates 500 output with yellow and clear in the Tovar catheter bag. ABDOMEN: Still protuberant with distention, but nontender and tympanitic to percussion. LABORATORY DATA: Laboratory values reveal an H and H that went down from 13.1 to 9.2 and 44.4 to 29.8, with platelets down to 128. However, her white count also went down to 10. Her urine culture ultimately was negative, as there was no concern from the micro. ASSESSMENT: We have a 68-year-old female admitted with no further actue urologic issues, but significant urinary retention seemingly without a significant postobstructive diuresis. Certainly the catheter is draining well and there is no concern for with hematuria or this affectnig her H and H/possible blood loss. She also has not had any concerns from a GI standpoint since this change. I would continue her tamsulosin twice a day and continue the Tovar catheter for now and the immediate future. She should be discharged home with the Tovar catheter and she can have a voiding trial with me in approximately 1 month. My office will help to arrange this. Please call for further urologic issues this stay. Job ID: [id number] MTDD
[2018-12-06] MEDS: Piperacillin/Tazobactam 3.375 GM in Sodium Chloride 0.9% 100 ML IVPB SCH ×4 (00:02→17:31)
[2018-12-06 06:53] LABS: Anion Gap 11 mmol/L (10-20); BUN (Urea Nitrogen) 27 mg/dL (9.8-20.1); Calc. Creatinine Clearance 51 mL/min (70-130); Calcium 8.2 mg/dL (7.8-10.44); Carbon Dioxide 21 mmol/L (23-31); Chloride 113 mmol/L (98-107); Estimated GFR-MDRD 78; Glucose 135 mg/dL (80-115); Iron 59 ug/dL (50-170); Iron Binding Capacity, Total 208 mcg/dL (265-497); Potassium 4.2 mmol/L (3.5-5.1); Sodium 141 mmol/L (136-145)
[2018-12-06] MEDS: Pantoprazole 40 MG GRANULES PACKET PER TUBE SCH (09:32)
[2018-12-06] MEDS: Atorvastatin Calcium 10 MG TAB PER TUBE SCH (09:32)
[2018-12-06] MEDS: metFORMIN 500 MG TAB PER TUBE SCH ×2 (09:32→17:31)
[2018-12-06] MEDS: Saccharomyces boulardii 250 MG CAP PER TUBE SCH (09:32)
[2018-12-06] MEDS: Tamsulosin HCl 0.4 MG CAP PO SCH ×2 (09:32→21:20)
[2018-12-06] MEDS: Metoprolol Tartrate 100 MG TAB PER TUBE SCH ×2 (09:32→21:20)
[2018-12-06] MEDS: Aspirin Chewable 81 MG TAB PER TUBE SCH (09:32)
[2018-12-06] MEDS: Lisinopril 20 MG TAB PER TUBE SCH (09:32)
[2018-12-06] MEDS: Amlodipine 5 MG TAB PER TUBE SCH (09:32)
[2018-12-06] MEDS: Cyanocobalamin (Vitamin B-12) 1,000 MCG TAB PER TUBE SCH (09:32)
[2018-12-06] MEDS: Ascorbic Acid 500 mg Chewable Tablet PER TUBE SCH ×2 (09:33→21:20)
[2018-12-06] MEDS: Famotidine/PF 20 mg/2ml Vial SLOW IVP SCH ×2 (09:33→21:20)
[2018-12-06] MEDS: Loratadine 5 MG/5 ML UDCUP PER TUBE SCH (10:00)
[2018-12-06] MEDS: Sodium Chloride 0.9% 1,000 ML IV SCH (12:24)
--- NOTE | 2018-12-06 12:49 | PRG ---
DATE OF SERVICE: 12/06/2018 SUBJECTIVE: The patient is seen and examined at the bedside. There is not much communication with this patient. She has quite severe dementia, although she follows my simple commands. OBJECTIVE: VITAL SIGNS: Blood pressure is 118/63, pulse is 76, respirations 12, O2 saturation 98%, temperature is 97.7, maximal temperature is 99.2 in the last 24 hours, and pulse oximetry is 98% on room air. HEENT: Her head is atraumatic and normocephalic. Pupils are responding to light properly. Sclerae are nonicteric. Oral mucosa is somewhat dry. NECK: Supple. LUNGS: Breath sounds slightly diminished at both bases. HEART: S1 and S2 normal. No S3. No S4. ABDOMEN: Soft and nontender. The tube is in place. Bowel sounds present. EXTREMITIES: No clubbing or cyanosis. There is 1+ peripheral edema. LABORATORY DATA: Labs showed glycemia is ranging from 130 to 208, sodium of 141, potassium 4.2, chloride 113, BUN 27, creatinine 0.87, total iron binding capacity 208, iron 59, and ferritin 42.45. Microbiology, blood cultures x2 at 48 hours negative, urine culture negative at 48 hours. Stool occult blood test positive as before. IMPRESSION: 1. Vomiting with fever with abdominal distention. Sepsis is still suspected. Although blood cultures and urine cultures so far negative, going to trim her antibiotic regimen to Zosyn. I am going to stop vancomycin. 2. Dramatic hemoglobin level drop, but stable since then. The patient was on Plavix prior to this hospitalization because of this finding and positive guaiac on her stool. Plavix is on hold. We will continue her Protonix. GI following. Iron studies suggestive of chronic anemia. 3. Renal insufficiency, improved with IV hydration minimally. We will stop IV fluids. 4. Dehydration, improved. 5. Hyperkalemia, improved. 6. Hypercalcemia, improved and resolved with IV hydration. 7. Elevated troponin I x2 suggestive of most likely demand ischemia. DISCUSSION: It is unclear whether the CT changes in her urinary tract had some contributing part in the presentation at the time of admission. Urology assessed the patient and they wanted to continue Tovar catheter and continue Flomax twice a day and do the voiding trial in 1 month. I appreciate this help. As mentioned above, we will stop vancomycin. We will continue Protonix IV and Dr. Tatum will make decision about possible scoping of this lady since she is positive for guaiac and she had dramatic hemoglobin drop, although we do not see any evidence of bleeding, but most likely this is related to hemoconcentration. Job ID: [id number]
--- NOTE | 2018-12-06 15:22 | PRG ---
DATE OF SERVICE: 12/06/2018 SUBJECTIVE: Ms. Miranda has had no overt bleeding. She reports no abdominal pain. OBJECTIVE: VITAL SIGNS: Temperature is 97.7, pulse 80, and blood pressure 120/66. GENERAL: She is in no acute distress. She is awake and responsive, but not significantly verbally communicative. LUNGS: Clear to auscultation bilaterally. HEART: Regular rate and rhythm without murmur. ABDOMEN: Soft, nontender, and nondistended. Bowel sounds are present. EXTREMITIES: Trace lower extremity edema. LABORATORY DATA: Hemoglobin is 9.7 yesterday evening. Ferritin is 42, iron 59, and TIBC 208. IMPRESSION: 1. Anemia of chronic disease. Her ferritin is not high enough to rule out a component of iron deficiency as well. Therefore, I did offer esophagogastroduodenoscopy and colonoscopy to be done and discuss this with the patient's . Given that the patient has had no overt bleeding and that her iron studies really are most suggestive of anemia of chronic disease and that she has had anemia for a long time and a negative colonoscopy in 2012, her has chosen to monitor her clinically for now and prefers to delay endoscopy to be done if she starts showing signs of overt bleeding or worsening iron deficiency anemia. 2. Constipation, on presentation. Her stools have been soft since then. She can continue with MiraLAX daily through her percutaneous endoscopic gastrostomy tube. 3. Urinary retention. RECOMMENDATIONS: 1. She can change to proton pump inhibitor to be given through the PEG tube at any point. 2. I think it would be fine for her to restart her Plavix at this point given the lack of overt bleeding. She has had a stroke and risk of being off the Plavix may outweigh that risk of bleeding. We can follow the trend of her hemoglobin on aspirin and Plavix. 3. If she develops signs of significant overt GI bleeding, then we will plan upper and lower endoscopy. Again, I did offer endoscopy to be done currently as well; however, the family has chosen to delay for now which I think is reasonable. 4. I will sign off for now. Please call if GI can be of assistance. Job ID: [id number]
[2018-12-07] MEDS: Piperacillin/Tazobactam 3.375 GM in Sodium Chloride 0.9% 100 ML IVPB SCH ×4 (00:12→17:55)
[2018-12-07] MEDS: Sodium Chloride 0.9% 1,000 ML IV SCH ×2 (00:13→12:12)
[2018-12-07 05:57] LABS: Anion Gap 11 mmol/L (10-20); BUN (Urea Nitrogen) 14 mg/dL (9.8-20.1); Calc. Creatinine Clearance 58 mL/min (70-130); Calcium 8.7 mg/dL (7.8-10.44); Carbon Dioxide 23 mmol/L (23-31); Chloride 111 mmol/L (98-107); Estimated GFR-MDRD Greater than 90; Glucose 123 mg/dL (80-115); Potassium 3.9 mmol/L (3.5-5.1); Sodium 141 mmol/L (136-145)
[2018-12-07] MEDS: Lisinopril 20 MG TAB PER TUBE SCH (08:56)
[2018-12-07] MEDS: Saccharomyces boulardii 250 MG CAP PER TUBE SCH (08:56)
[2018-12-07] MEDS: metFORMIN 500 MG TAB PER TUBE SCH ×2 (08:56→16:36)
[2018-12-07] MEDS: Ascorbic Acid 500 mg Chewable Tablet PER TUBE SCH (08:56)
[2018-12-07] MEDS: Aspirin Chewable 81 MG TAB PER TUBE SCH (08:56)
[2018-12-07] MEDS: Atorvastatin Calcium 10 MG TAB PER TUBE SCH (08:56)
[2018-12-07] MEDS: Amlodipine 5 MG TAB PER TUBE SCH (08:56)
[2018-12-07] MEDS: Metoprolol Tartrate 100 MG TAB PER TUBE SCH (08:56)
[2018-12-07] MEDS: Loratadine 5 MG/5 ML UDCUP PER TUBE SCH (08:57)
[2018-12-07] MEDS: Tamsulosin HCl 0.4 MG CAP PO SCH (08:57)
[2018-12-07] MEDS: Cyanocobalamin (Vitamin B-12) 1,000 MCG TAB PER TUBE SCH (08:57)
[2018-12-07] MEDS: Pantoprazole 40 MG GRANULES PACKET PER TUBE SCH (08:57)
[2018-12-07] MEDS: Famotidine/PF 20 mg/2ml Vial SLOW IVP SCH (08:57)
[2018-12-07 10:09] LABS: Hemoglobin 9.8 g/dL (12.0-16.0)
--- NOTE | 2018-12-07 13:20 | PQF ---
CLINICAL DOCUMENTATION IMPROVEMENT CLARIFICATION FORM: ICD-10 Updated PLEASE DO AN ADDENDUM TO THE PROGRESS NOTE WITH ANY DOCUMENTATION UPDATES OR ADDITIONS AND CARRY THROUGH TO DC SUMMARY. THANK YOU. DATE: 12/07/2018 ATTN: Dr. Vidal Please exercise your independent, professional judgment in responding to the clarification form. Clinical indicators are provided on the bottom of this form for your review Please check appropriate box(s): [ x ] Acute Renal Failure (ARF) / Acute Kidney Injury (CATY) [ ] Other diagnosis [ ] Unable to determine In addition, please specify: Present on Admission (POA): [ ] Yes [ ] No [ ] Unable to determine For continuity of documentation, please document condition throughout progress notes and discharge summary. Thank You. CLINICAL INDICATORS - SIGNS / SYMPTOMS / LABS H&P 12/03: Creatinine 1.27 Renal insufficiency, acute most likely secondary to dehydration 12/03 Labs: Creatinine 1.27 1.38 0.76 Estimated GFR 51 46 >90 PN 12/06: creatinine 0.87 Renal insufficiency, improved with IV hydration minimally. RISKS: H&P: jail resident. Hx positive for CVA, DM, HTN. Vitamin B12 deficiency with anemia. G-tube placement. Renal insufficiency, acute most likely secondary to dehydration TREATMENT: H&P: IV normal saline at 100ml/ hr National Kidney [employer] Guidelines for CKD Staging Stage I Kidney damage with normal or increased GFR GFR > 90 Stage II Kidney damage with mildly decreased GFR GFR 60-89 Stage III Kidney damage with moderately decreased GFR GFR 30-59 Stage IV Kidney damage with severely decreased GFR GFR 16-29 Stage V Kidney failure GFR <15 ESRD End Stage Renal Disease On dialysis Acute Renal Failure/Acute Kidney Failure defined as: Increases in SCr by (>) 0.3 mg/dl within 48 hours OR- Increases in SCr by (>) 1.5 times baseline, known or presumed to have occurred within the prior 7 days OR- Urine volume < 0.5 ml/kg/hour for 6 hours (KDIGO supplement 2012 for RIFLE/OWEN criteria) Thank you, Diane (This form is maintained as a part of the permanent medical record) 2014 [employer] All Rights Reserved Diane Oscar, RN, BSN [email or web address] Office: [phone] [facility]
[2018-12-07 16:00] VITALS: BP 133/66; TEMP 97.9
--- NOTE | 2018-12-08 04:17 | DIS ---
DATE OF ADMISSION: 12/03/2018 DATE OF DISCHARGE: 12/07/2018 FINAL DIAGNOSES: 1. Most likely sepsis with vomiting and fever and abdominal distention. 2. Dramatic hemoglobin drop, felt to be related to dehydration and fluid resuscitation subsequently. 3. Positive guaiac stool without gross GI bleeding. 4. Renal insufficiency, improved with IV hydration minimally. 5. Dehydration, improved. 6. Hyperkalemia, improved. 7. Hypercalcemia, improved. 8. Elevated troponin I. HOSPITAL COURSE: The patient is a 68-year-old female from the [facility], who was found to have a temperature of 101, started vomiting. She had abdominal distention and was sent out to the emergency room for further evaluation. Sepsis was suspected while in the emergency room, her white count was up to 17.2, hemoglobin 15.3, hematocrit 50, platelet count 209, with 85% of neutrophils. Potassium 5.4, creatinine 1.27. Lactic acid was 3.9, and calcium 11.2. Three troponins were 0.059, 0.078, and 0.098. Fecal occult blood test was positive. EKG showed normal sinus rhythm with ventricular rate of 80, ST-segment depression in lead I and aVL. Chest x-ray showed slight elevation of the right diaphragm with no infiltrates. CT of the abdomen and pelvis showed moderately bilateral hydroureteronephrosis, marked dilatation of the rectal vault measuring up to 10 cm with thin wall, and cholelithiasis without evidence of acute cholecystitis. Urinalysis showed 100 of protein, 500 of glucose, trace of blood, 7-10 hyaline casts, and negative leukocyte esterases, and negative for nitrites. The patient was started on IV fluids. She was started on vancomycin and Zosyn. Blood cultures and urine cultures were done. Her glycemia was elevated at 297, so she was started on a.c. and at bedtime Accu-Cheks with Humulin. Urology, Dr. Stone was consulted for hydronephrosis and urinary retention. It was felt that this temperature was related to changes in her urinary tract. Dr. Stone recommended to continue Tovar catheter in place at least for one month before doing the voiding trial in the office. She felt that most of those changes on CT in her urinary system were old. Also, the patient was started on Flomax. She subsequently had urine culture and blood culture that came back without any growth. She was positive on her stool for fecal occult blood test, so gastrointestinal evaluation was triggered. Dr. Garibay saw the patient and he did not recommend further investigation because of her current health status and the lack of obvious gross GI bleeding. The patient's Plavix was stopped and aspirin was stopped. During this hospitalization, her hemoglobin dropped significantly from 15.3 to 9.2. It was still felt that this was caused by dehydration. Her white count improved from 17.2 to 10.0, and the patient seems to be doing well. She did not have any fever during this hospitalization, already low-grade to highest temperature was 99.2. She tolerated her tube feeding without any problems. She is discharged back to [facility], her intermediate with recommendation to stay on the same diet through her feeding tube. She would have a Tovar catheter in until she sees Dr. Stone in 1 month and have a voiding trial in her office. DISCHARGE MEDICATIONS: 1. Amlodipine 5 mg once a day. 2. Ascorbic acid 500 mg twice a day. 3. Aspirin 81 mg once a day. 4. Atorvastatin 10 mg once a day. 5. Vitamin B12 500 mcg once a day. 6. Lisinopril 20 mg once a day. 7. Metformin 500 mg twice a day. 8. Metoprolol tartrate 100 mg twice a day. 9. Pantoprazole 40 mg once a day. 10. Flomax 0.4 mg twice a day. 11. Levofloxacin 500 mg once a day for additional 5 days. FOLLOWUP: The patient needs to follow up with her primary care physician at the intermediate in approximately 1-2 weeks and follow up with Dr. Stone, urologist, who saw her during this hospitalization in 1 month. The patient was seen and examined at the bedside before she is discharged. TIME SPENT: Discharge time is more than 30 minutes. Job ID: [id number]
== END 2018-12-07 18:29 | DRG 872 ==
LOC: ERS 17:49 → 2NO 21:34
PROVIDERS: ADMIT Hospitalist; ATTEND Hospitalist
DX: A41.9 Sepsis, unspecified organism (principal); N13.30 Unspecified hydronephrosis; D50.9 Iron deficiency anemia, unspecified; E86.0 Dehydration; E87.5 Hyperkalemia; E83.52 Hypercalcemia; E11.9 Type 2 diabetes mellitus without complications; I10 Essential (primary) hypertension; E78.5 Hyperlipidemia, unspecified; K59.09 Other constipation; R33.9 Retention of urine, unspecified; R19.5 Other fecal abnormalities; Z93.1 Gastrostomy status; Z98.51 Tubal ligation status; Z90.710 Acquired absence of both cervix and uterus; I69.320 Aphasia following cerebral infarction; F32.9 Major depressive disorder, single episode, unspecified; D63.8 Anemia in other chronic diseases classified elsewhere; K21.9 Gastro-esophageal reflux disease without esophagitis; D51.9 Vitamin B12 deficiency anemia, unspecified; F41.9 Anxiety disorder, unspecified; Z79.02 Long term (current) use of antithrombotics/antiplatelets; Z79.899 Other long term (current) drug therapy; Z79.82 Long term (current) use of aspirin; Z79.84 Long term (current) use of oral hypoglycemic drugs; F03.90 Unspecified dementia, unspecified severity, without behavioral disturbance, psychotic disturbance, mood disturbance, and anxiety; N28.9 Disorder of kidney and ureter, unspecified
CPT/HCPCS: 36415; 36416; 51702; 71045; 74177; 80048; 80053; 80202; 81003; 81015; 82274; 82553; 82728; 83540; 83550; 83605; 84484; 85014; 85018; 85025; 87040; 87086; 93005; 96365; 96366; 96368; 96375; A4353; J2405; J2543; J3370; J7050; Q9966; S0028

== ENCOUNTER 2018-12-19 10:19 | Emergency (ER) | payer MEDICARE, MEDICAID ==
--- NOTE | 2018-12-19 11:34 | RAD ---
KUB: Date: 12-19-18 History: Evaluate gastrostomy tube location. FINDINGS: A single supine radiograph of the abdomen/pelvis is provided. Rim calcified structure in the right up per quadrant suggests a gallstone measuring 2.4 cm. Contrast media was injected via the patient's gas trostomy tube. The contrast medial opacifies the stomach confirming an intraluminal location. There i s prominent stool overlying the rectum which is expanded suggesting fecal impaction. Evaluation for b owel obstruction and free air is limited on supine imaging. IMPRESSION: Contrast media within the stomach confirming an intraluminal location of the gastrostomy tube. Additi onal findings as detailed above. POS: [facility]
== END 2018-12-19 11:19 ==
LOC: ERS 10:19
DX: K94.23 Gastrostomy malfunction (principal); D64.9 Anemia, unspecified; K21.9 Gastro-esophageal reflux disease without esophagitis; E11.9 Type 2 diabetes mellitus without complications; E78.5 Hyperlipidemia, unspecified; I10 Essential (primary) hypertension; G40.909 Epilepsy, unspecified, not intractable, without status epilepticus; F41.9 Anxiety disorder, unspecified; F32.9 Major depressive disorder, single episode, unspecified; Z79.82 Long term (current) use of aspirin; Z79.899 Other long term (current) drug therapy; Z79.84 Long term (current) use of oral hypoglycemic drugs
CPT/HCPCS: 43762; 74018

== ENCOUNTER 2019-01-23 06:24 | Emergency (ER) | payer MEDICARE, MEDICAID ==
--- NOTE | 2019-01-23 09:44 | RAD ---
ABDOMEN 1 VIEW: HISTORY: PEG tube replacement. FINDINGS: Calcified gallstone is again seen as on exam of 12/19/2018. There is contrast in the stomach and the lumen of the PEG tube indicating appropriate placement and patency. There is fecal material in the rectosigmoid. Degenerative changes are present in the spine. POS: OFF
[2019-01-23] MEDS ORDERED: GASTROGRAFIN 30 ML BOT ONE (11:09)
== END 2019-01-23 08:15 ==
LOC: ERS 06:24
DX: Z46.59 Encounter for fitting and adjustment of other gastrointestinal appliance and device (principal); D64.9 Anemia, unspecified; K21.9 Gastro-esophageal reflux disease without esophagitis; E11.9 Type 2 diabetes mellitus without complications; E78.5 Hyperlipidemia, unspecified; I10 Essential (primary) hypertension; G40.909 Epilepsy, unspecified, not intractable, without status epilepticus; F41.9 Anxiety disorder, unspecified; F32.9 Major depressive disorder, single episode, unspecified; Z79.899 Other long term (current) drug therapy; Z86.73 Personal history of transient ischemic attack (TIA), and cerebral infarction without residual deficits; Z79.84 Long term (current) use of oral hypoglycemic drugs; Z79.82 Long term (current) use of aspirin
CPT/HCPCS: 43762; 74018; Q9963

== ENCOUNTER 2019-03-10 20:29 | Emergency (ER) | payer MEDICARE, MEDICAID | END 2019-03-10 20:48 | LOC: ERS 20:29 | DX: Z43.1 Encounter for attention to gastrostomy (principal); D64.9 Anemia, unspecified; E11.9 Type 2 diabetes mellitus without complications; E78.5 Hyperlipidemia, unspecified; I10 Essential (primary) hypertension; G40.909 Epilepsy, unspecified, not intractable, without status epilepticus; D69.6 Thrombocytopenia, unspecified; F41.9 Anxiety disorder, unspecified; F32.9 Major depressive disorder, single episode, unspecified; Z79.899 Other long term (current) drug therapy; Z86.73 Personal history of transient ischemic attack (TIA), and cerebral infarction without residual deficits; Z79.82 Long term (current) use of aspirin; Z79.84 Long term (current) use of oral hypoglycemic drugs | CPT/HCPCS: 43762; B4087 ==

== ENCOUNTER 2019-04-18 16:32 | Emergency (ER) | payer MEDICAID, MEDICARE | END 2019-04-18 18:27 | LOC: ERS 16:32 | DX: K94.23 Gastrostomy malfunction (principal); D64.9 Anemia, unspecified; K21.9 Gastro-esophageal reflux disease without esophagitis; E11.9 Type 2 diabetes mellitus without complications; E78.5 Hyperlipidemia, unspecified; I10 Essential (primary) hypertension; G40.909 Epilepsy, unspecified, not intractable, without status epilepticus; F41.9 Anxiety disorder, unspecified; F32.9 Major depressive disorder, single episode, unspecified; Z79.899 Other long term (current) drug therapy; Z86.73 Personal history of transient ischemic attack (TIA), and cerebral infarction without residual deficits; Z79.84 Long term (current) use of oral hypoglycemic drugs; Z79.82 Long term (current) use of aspirin | CPT/HCPCS: 99283 ==

== ENCOUNTER 2019-04-21 20:22 | Emergency (ER) | payer MEDICARE | END 2019-04-21 20:40 | LOC: ERS 20:22 | DX: Z43.1 Encounter for attention to gastrostomy (principal); E11.9 Type 2 diabetes mellitus without complications; D51.9 Vitamin B12 deficiency anemia, unspecified; K21.9 Gastro-esophageal reflux disease without esophagitis; E78.5 Hyperlipidemia, unspecified; I10 Essential (primary) hypertension; G40.909 Epilepsy, unspecified, not intractable, without status epilepticus; D69.6 Thrombocytopenia, unspecified; F32.9 Major depressive disorder, single episode, unspecified; F41.9 Anxiety disorder, unspecified; Z79.82 Long term (current) use of aspirin; Z79.84 Long term (current) use of oral hypoglycemic drugs; Z79.899 Other long term (current) drug therapy; Z86.73 Personal history of transient ischemic attack (TIA), and cerebral infarction without residual deficits | CPT/HCPCS: 99283 ==

== ENCOUNTER 2020-06-29 07:04 | Emergency (ER) | payer MEDICARE, MEDICAID | END 2020-06-29 09:10 | disposition home or self-care (01) | LOC: ERS 07:04 | DX: K94.23 Gastrostomy malfunction (principal); K21.9 Gastro-esophageal reflux disease without esophagitis; E11.9 Type 2 diabetes mellitus without complications; E78.5 Hyperlipidemia, unspecified; I10 Essential (primary) hypertension; F41.9 Anxiety disorder, unspecified; F32.9 Major depressive disorder, single episode, unspecified | CPT/HCPCS: 99284 ==

== ENCOUNTER 2020-12-05 10:14 | Emergency (ER) | payer MEDICARE, MEDICAID ==
[2020-12-05] MEDS ORDERED: GASTROGRAFIN 30 ML BOT ONE ×2 (12:09)
== END 2020-12-05 12:31 | disposition home or self-care (01) ==
LOC: ERS 10:14
DX: Z46.59 Encounter for fitting and adjustment of other gastrointestinal appliance and device (principal); D64.9 Anemia, unspecified; K21.9 Gastro-esophageal reflux disease without esophagitis; Z86.73 Personal history of transient ischemic attack (TIA), and cerebral infarction without residual deficits; E78.5 Hyperlipidemia, unspecified; E11.9 Type 2 diabetes mellitus without complications; D51.9 Vitamin B12 deficiency anemia, unspecified
CPT/HCPCS: 43762; 74018; Q9963

== ENCOUNTER 2021-01-17 16:18 | Emergency (ER) | payer MEDICARE, MEDICAID ==
[2021-01-17 17:12] LABS: Clarity Cloudy (Clear); Glucose, Urine (Dipstick) Unable to Interpret mg/dL (Negative); Ketone, Urine Unable to Interpret mg/dL (Negative); Leukocyte Unable to Interpret (Negative); Nitrite Unable to Interpret (Negative); Protein, Urine (Dipstick) Unable to Interpret mg/dL (Neg-Trace); Specific Gravity, Urine 1.022 (1.002-1.036)
[2021-01-17 17:13] LABS: Bilirubin Unable to Interpret (Negative); Blood, Urine Unable to Interpret (Negative); Urobilinogen UNABLE TO INTERPRET mg/dL (Less than 2)
[2021-01-17 17:15] LABS: #Basophils 0.1 thou/uL (0.0-0.2); #Eosinphils 0.2 thou/uL (0.0-0.7); #Lymphocytes 2.1 thou/uL (1.20-3.40); #Monocytes 0.7 thou/uL (0.11-0.59); #Neutrophils 8.1 thou/uL (1.40-6.50); %Basophils 0.5 % (0.0-1.0); %Eosinophils 1.6 % (0.0-10.0); %Monocytes 6.2 % (0.0-10.0); %Neutrophils 72.8 % (42.0-75.0); Hemoglobin 13.2 g/dL (12.0-16.0); Mean Corpuscular HGB CONC 31.5 g/dL (32.0-36.0); Mean Corpuscular Hemoglobin 23.7 pg (27.0-31.0); Mean Corpuscular Volume 75.1 fL (78.0-98.0); Mean Platelet Volume 10.5 fL (7.4-10.4); Platelet Count 170 thou/uL (130-400); RBC Distribution Width 14.2 % (11.5-14.5); Red Blood Cell (RBC) Count 5.56 mill/uL (4.20-5.40); White Blood Cell (WBC) Count 11.1 thou/uL (4.8-10.8)
[2021-01-17 17:18] LABS: Bacteria/HPF Rare-Few HPF (None Seen); RBC/HPF Greater than 50 HPF (0-3); Squamous Epithelial None Seen HPF (0-3)
[2021-01-17 17:21] LABS: INR-International Normal Ratio 1.1; PTT 28.3 sec (22.9-36.1); Prothrombin Time 14.1 sec (12.0-14.7)
[2021-01-17 19:02] LABS: Albumin 3.7 g/dL (3.4-4.8)
[2021-01-17 19:03] LABS: Calcium 9.9 mg/dL (7.8-10.44); Potassium 4.6 mmol/L (3.5-5.1)
[2021-01-17 19:04] LABS: Glucose 215 mg/dL (80-115)
[2021-01-17 19:05] LABS: Anion Gap 15 mmol/L (10-20); Carbon Dioxide 24 mmol/L (23-31); Globulin 4.4 g/dL (2.4-3.5); Protein, Total 8.1 g/dL (5.8-8.1)
[2021-01-17 19:06] LABS: Bilirubin, Total 0.3 mg/dL (0.2-1.2)
[2021-01-17 19:07] LABS: Alkaline Phosphatase 74 U/L (40-110); Calc. Creatinine Clearance 0 mL/min (70-130)
[2021-01-17 19:08] LABS: BUN (Urea Nitrogen) 27 mg/dL (9.8-20.1)
[2021-01-17 19:09] LABS: AST (SGOT) 25 U/L (5-34)
[2021-01-17 19:10] LABS: ALT (SGPT) 11 U/L (8-55)
[2021-01-17 19:15] LABS: Chloride 106 mmol/L (98-107); Sodium 140 mmol/L (136-145)
== END 2021-01-17 18:38 | disposition home or self-care (01) ==
LOC: ERS 16:18
DX: N30.91 Cystitis, unspecified with hematuria (principal); D64.9 Anemia, unspecified; E11.9 Type 2 diabetes mellitus without complications; E78.5 Hyperlipidemia, unspecified; Z86.73 Personal history of transient ischemic attack (TIA), and cerebral infarction without residual deficits; I10 Essential (primary) hypertension; G40.909 Epilepsy, unspecified, not intractable, without status epilepticus
CPT/HCPCS: 36415; 74176; 80053; 81003; 81015; 85025; 85610; 85730; 87040; 87086; 87149

== ENCOUNTER 2021-02-17 10:08 | Inpatient (IN) | payer MEDICARE, MEDICAID ==
[2021-02-17 11:07] LABS: Actual Bicarbonate (HCO3v) 18 mEq/L (22-28); Analyzer IN Cardio ER; Base Excess -4.3 mEq/L (-2.0 to +3.0); Calcium, Ionized (venous) 1.18 mmol/L (1.16-1.32); Chloride (VBG) 100 mmol/L (98-106); Hemoglobin (Hb) 16.2 g/dL (11.7-16.1); Potassium (VBG) 5.35 mmol/L (3.70-5.30); Sodium 135.5 mmol/L (133-146); pH (venous) 7.44 (7.32-7.43)
[2021-02-17 11:12] LABS: Hemoglobin 14.9 g/dL (12.0-16.0); Mean Corpuscular HGB CONC 28.5 g/dL (32.0-36.0); Mean Corpuscular Volume 73.8 fL (78.0-98.0); Mean Platelet Volume 11.6 fL (7.4-10.4); Platelet Count 178 thou/uL (130-400); RBC Distribution Width 14.6 % (11.5-14.5); Red Blood Cell (RBC) Count 7.07 mill/uL (4.20-5.40); White Blood Cell (WBC) Count 12.5 thou/uL (4.8-10.8)
[2021-02-17 11:34] LABS: ALT (SGPT) 11 U/L (8-55); AST (SGOT) 27 U/L (5-34); Albumin 3.9 g/dL (3.4-4.8); Alkaline Phosphatase 83 U/L (40-110); Anion Gap 21 mmol/L (10-20); BUN (Urea Nitrogen) 46 mg/dL (9.8-20.1); Bilirubin, Total 0.6 mg/dL (0.2-1.2); Calc. Creatinine Clearance 0 mL/min (70-130); Calcium 10.5 mg/dL (7.8-10.44); Carbon Dioxide 16 mmol/L (23-31); Chloride 101 mmol/L (98-107); Glucose 497 mg/dL (83-110); Lipase 29 U/L (8-78); Potassium 5.9 mmol/L (3.5-5.1); Protein, Total 8.9 g/dL (5.8-8.1); Sodium 132 mmol/L (136-145)
[2021-02-17 11:40] LABS: Band 25 % (5-11); Lymphocytes 22 % (21-51); MDiff Complete? YES; Metamyelocyte 1 % (0-0); Microcytosis MODERATE=15-30 cells (100X) (0-5/hpf); Monocytes 5 % (0-10); Neutrophil 47 % (42-75); Platelet Morphology Comment Appears Adequate; Polychromasia SLIGHT = 2-3 cells (100X) (0-2/hpf)
[2021-02-17] MEDS ORDERED: cefTRIAXone\\ROCEPHIN 2 GM VIAL ONE (11:44)
[2021-02-17 11:56] LABS: CKMB 0.6 ng/mL (0-6.6)
[2021-02-17 12:14] LABS: Clarity Extra Turbid (Clear)
[2021-02-17 12:15] LABS: Glucose, Urine (Dipstick) 100 mg/dL (Negative); Leukocyte Large Leu/uL (Negative); Nitrite Negative (Negative); Protein, Urine (Dipstick) 300 mg/dL (Neg-Trace); pH, Urine 6.4 (5.0-9.0)
[2021-02-17 12:16] LABS: Bilirubin Negative (Negative); Blood, Urine Large (Negative); Ketone, Urine 80 mg/dL (Negative); Urobilinogen 0.2 mg/dL (Less than 2)
[2021-02-17 12:19] LABS: RBC/HPF Greater than 50 HPF (0-3); WBC/HPF Greater Than 50 HPF (0-3)
[2021-02-17 12:20] LABS: Bacteria/HPF 1+ HPF (None Seen); Squamous Epithelial 0-3 HPF (0-3)
[2021-02-17] MEDS ORDERED: Azithromycin 500 MG VIAL ONE (13:49)
[2021-02-17] MEDS ORDERED: Insulin Regular 300 UNITS/3 ML VIAL IVP SCH (14:15)
[2021-02-17] MEDS ORDERED: Acetaminophen 325 MG TAB PER TUBE PRN (14:22)
[2021-02-17] MEDS ORDERED: Albuterol Sulfate 2.5 mg/0.5 ml Neb NEB SCH (14:48)
[2021-02-17 14:52] LABS: Troponin I 0.062 ng/mL (< 0.028)
[2021-02-17] MEDS: Sodium Chloride 0.9% 1,000 ML IV SCH (15:45)
[2021-02-17] MEDS: Heparin 5,000 UNITS/ML VIAL SC SCH ×2 (16:43→22:09)
[2021-02-17 17:34] LABS: Troponin I 0.059 ng/mL (< 0.028)
[2021-02-17 17:42] LABS: Anion Gap 23 mmol/L (10-20); BUN (Urea Nitrogen) 47 mg/dL (9.8-20.1); Calc. Creatinine Clearance 20 mL/min (70-130); Calcium 9.5 mg/dL (7.8-10.44); Carbon Dioxide 16 mmol/L (23-31); Chloride 106 mmol/L (98-107); Glucose 365 mg/dL (83-110); Potassium 4.9 mmol/L (3.5-5.1); Sodium 140 mmol/L (136-145)
[2021-02-18 01:07] LABS: SARS-CoV-2 PCR by NAA Not Detected (NotDetected)
[2021-02-18] MEDS: Sodium Chloride 0.9% 1,000 ML IV SCH ×2 (04:15→17:15)
[2021-02-18 05:03] LABS: Anion Gap 15 mmol/L (10-20); BUN (Urea Nitrogen) 51 mg/dL (9.8-20.1); Calc. Creatinine Clearance 25 mL/min (70-130); Calcium 8.4 mg/dL (7.8-10.44); Carbon Dioxide 21 mmol/L (23-31); Chloride 109 mmol/L (98-107); Glucose 411 mg/dL (83-110); Potassium 3.9 mmol/L (3.5-5.1); Sodium 141 mmol/L (136-145)
[2021-02-18 05:23] LABS: Eosinophils 1 % (0-10); Lymphocytes 13 % (21-51); MDiff Complete? YES; Mean Corpuscular HGB CONC 30.5 g/dL (32.0-36.0); Mean Corpuscular Hemoglobin 23.2 pg (27.0-31.0); Mean Platelet Volume 13.6 fL (7.4-10.4); Monocytes 3 % (0-10); Neutrophil 83 % (42-75); Platelet Count 127 thou/uL (130-400); Platelet Morphology Comment Appears Decreased; Red Blood Cell (RBC) Count 4.74 mill/uL (4.20-5.40); White Blood Cell (WBC) Count 12.8 thou/uL (4.8-10.8)
[2021-02-18] MEDS ORDERED: Polyethylene Glycol 3350 17 GM Packet PER TUBE PRN (07:24)
[2021-02-18] MEDS ORDERED: Acetaminophen 325 MG TAB PER TUBE PRN (07:24)
[2021-02-18] MEDS ORDERED: Preparation H Suppository PR PRN (07:24)
[2021-02-18] MEDS ORDERED: Dextrose 5% in Water 1,000 ML IV PRN (07:26)
[2021-02-18] MEDS ORDERED: Dextrose 50% Abboject 50 ML SYRINGE SLOW IVP PRN (07:26)
[2021-02-18] MEDS ORDERED: HumaLOG 300 UNITS/3 ML VIAL SC PRN (07:26)
[2021-02-18] MEDS ORDERED: Metoprolol Tartrate 100 MG TAB PER TUBE SCH (09:00)
[2021-02-18] MEDS ORDERED: Insulin Glargine 15 UNITS in Pre-Filled Syringe 1 EACH SC SCH (09:00)
[2021-02-18] MEDS ORDERED: Lactulose 10 GM/15 ML Oral Solution PER TUBE SCH (09:00)
[2021-02-18 09:02] VITALS: BMI 21.0
[2021-02-18] MEDS: Heparin 5,000 UNITS/ML VIAL SC SCH ×3 (10:04→21:02)
[2021-02-18] MEDS: Saccharomyces boulardii 250 MG CAP PER TUBE SCH (10:04)
[2021-02-18] MEDS: Multivitamin W/ Minerals 1 TAB PER TUBE SCH (10:05)
[2021-02-18] MEDS: Metoprolol Tartrate 25 MG TAB PO SCH ×2 (10:05→21:02)
[2021-02-18] MEDS: Clopidogrel Bisulfate 75 MG TAB PER TUBE SCH (10:05)
[2021-02-18] MEDS: Lantus 1000 UNITS/10 ML VIAL SC SCH ×2 (10:06→21:23)
[2021-02-18] MEDS: Bisacodyl 10 MG SUPP PR SCH (11:00)
[2021-02-18] MEDS: cefTRIAXone\\ROCEPHIN 1 GM in Sodium Chloride 0.9% 100 ML IVPB SCH (13:38)
[2021-02-18] MEDS: HumaLOG 300 UNITS/3 ML VIAL SC PRN (13:39)
[2021-02-18] MEDS: Azithromycin 500 MG in Sodium Chloride 0.9% 250 ML 250 ML IVPB SCH (17:15)
[2021-02-19] MEDS: Sodium Chloride 0.9% 1,000 ML IV SCH (06:21)
[2021-02-19] MEDS: Bisacodyl 10 MG SUPP PR SCH (08:57)
[2021-02-19] MEDS: Heparin 5,000 UNITS/ML VIAL SC SCH ×3 (08:58→21:51)
[2021-02-19] MEDS: Saccharomyces boulardii 250 MG CAP PER TUBE SCH (08:58)
[2021-02-19] MEDS: Metoprolol Tartrate 25 MG TAB PO SCH ×2 (08:58→21:51)
[2021-02-19] MEDS: Clopidogrel Bisulfate 75 MG TAB PER TUBE SCH (08:58)
[2021-02-19] MEDS: Multivitamin W/ Minerals 1 TAB PER TUBE SCH (08:58)
[2021-02-19] MEDS: Lantus 1000 UNITS/10 ML VIAL SC SCH ×2 (08:59→21:51)
[2021-02-19 09:26] LABS: #Eosinphils 0.2 thou/uL (0.0-0.7); #Lymphocytes 2.1 thou/uL (1.20-3.40); #Monocytes 0.6 thou/uL (0.11-0.59); #Neutrophils 6.6 thou/uL (1.40-6.50); %Basophils 0.4 % (0.0-1.0); %Eosinophils 2.6 % (0.0-10.0); %Lymphocytes 22.1 % (21.0-51.0); %Monocytes 6.3 % (0.0-10.0); %Neutrophils 68.6 % (42.0-75.0); Hemoglobin 9.4 g/dL (12.0-16.0); Hypochromia SLIGHT = 6-15 cells (100X) (0-5/hpf); MDiff Complete? YES; Mean Corpuscular HGB CONC 29.9 g/dL (32.0-36.0); Mean Corpuscular Hemoglobin 22.8 pg (27.0-31.0); Mean Corpuscular Volume 76.4 fL (78.0-98.0); Mean Platelet Volume 13.6 fL (7.4-10.4); Microcytosis SLIGHT = 6-15 cells (100X) (0-5/hpf); Platelet Count 115 thou/uL (130-400); Platelet Morphology Comment Appears Decreased; Polychromasia SLIGHT = 2-3 cells (100X) (0-2/hpf); RBC Distribution Width 13.8 % (11.5-14.5); White Blood Cell (WBC) Count 9.7 thou/uL (4.8-10.8)
[2021-02-19 10:17] LABS: Chloride 111 mmol/L (98-107); Potassium 3.9 mmol/L (3.5-5.1); Sodium 141 mmol/L (136-145)
[2021-02-19 10:18] LABS: Calcium 8.2 mg/dL (7.8-10.44); Glucose 140 mg/dL (83-110)
[2021-02-19 10:19] LABS: Anion Gap 13 mmol/L (10-20); Carbon Dioxide 21 mmol/L (23-31)
[2021-02-19 10:22] LABS: BUN (Urea Nitrogen) 24 mg/dL (9.8-20.1)
[2021-02-19 10:48] LABS: Calc. Creatinine Clearance 56 mL/min (70-130)
[2021-02-19] MEDS: cefTRIAXone\\ROCEPHIN 1 GM in Sodium Chloride 0.9% 100 ML IVPB SCH (11:40)
[2021-02-19] MEDS: Azithromycin 500 MG in Sodium Chloride 0.9% 250 ML 250 ML IVPB SCH (15:45)
[2021-02-20] MEDS: HumaLOG 300 UNITS/3 ML VIAL SC PRN (06:03)
[2021-02-20 07:39] LABS: Anion Gap 12 mmol/L (10-20); BUN (Urea Nitrogen) 18 mg/dL (9.8-20.1); Calc. Creatinine Clearance 57 mL/min (70-130); Calcium 8.9 mg/dL (7.8-10.44); Carbon Dioxide 25 mmol/L (23-31); Chloride 106 mmol/L (98-107); Glucose 198 mg/dL (83-110); Potassium 3.7 mmol/L (3.5-5.1); Sodium 139 mmol/L (136-145)
[2021-02-20 08:22] LABS: Mean Corpuscular HGB CONC 31.3 g/dL (32.0-36.0); Mean Corpuscular Hemoglobin 23.3 pg (27.0-31.0); Mean Corpuscular Volume 74.4 fL (78.0-98.0); Mean Platelet Volume 14.1 fL (7.4-10.4); Platelet Count 107 thou/uL (130-400); RBC Distribution Width 13.7 % (11.5-14.5); Red Blood Cell (RBC) Count 4.31 mill/uL (4.20-5.40); White Blood Cell (WBC) Count 8.7 thou/uL (4.8-10.8)
[2021-02-20 08:38] LABS: Band 1 % (5-11); Hypochromia SLIGHT = 6-15 cells (100X) (0-5/hpf); Lymphocytes 25 % (21-51); MDiff Complete? YES; Microcytosis SLIGHT = 6-15 cells (100X) (0-5/hpf); Monocytes 2 % (0-10); Neutrophil 72 % (42-75); Platelet Morphology Comment Appears Decreased
[2021-02-20] MEDS: Lantus 1000 UNITS/10 ML VIAL SC SCH ×2 (09:00→21:27)
[2021-02-20] MEDS: Saccharomyces boulardii 250 MG CAP PER TUBE SCH (09:01)
[2021-02-20] MEDS: Clopidogrel Bisulfate 75 MG TAB PER TUBE SCH (09:01)
[2021-02-20] MEDS: Multivitamin W/ Minerals 1 TAB PER TUBE SCH (09:01)
[2021-02-20] MEDS: Bisacodyl 10 MG SUPP PR SCH (09:01)
[2021-02-20] MEDS: Metoprolol Tartrate 25 MG TAB PO SCH ×2 (09:01→21:28)
[2021-02-20] MEDS: cefTRIAXone\\ROCEPHIN 1 GM in Sodium Chloride 0.9% 100 ML IVPB SCH (12:46)
[2021-02-20] MEDS: Azithromycin 500 MG in Sodium Chloride 0.9% 250 ML 250 ML IVPB SCH (14:31)
[2021-02-20] MEDS: Pantoprazole 40 MG VIAL IVP SCH (18:16)
[2021-02-21] MEDS: Pantoprazole 40 MG VIAL IVP SCH (05:27)
[2021-02-21 07:43] LABS: ALT (SGPT) Less than 7 U/L (8-55); AST (SGOT) 16 U/L (5-34); Albumin 2.9 g/dL (3.4-4.8); Alkaline Phosphatase 70 U/L (40-110); Anion Gap 11 mmol/L (10-20); BUN (Urea Nitrogen) 14 mg/dL (9.8-20.1); Bilirubin, Total 0.3 mg/dL (0.2-1.2); Calc. Creatinine Clearance 58 mL/min (70-130); Calcium 9.1 mg/dL (7.8-10.44); Carbon Dioxide 24 mmol/L (23-31); Chloride 106 mmol/L (98-107); Globulin 3.5 g/dL (2.4-3.5); Glucose 151 mg/dL (83-110); Magnesium 1.7 mg/dL (1.6-2.6); Phosphorus 2.3 mg/dL (2.3-4.7); Potassium 3.7 mmol/L (3.5-5.1); Protein, Total 6.4 g/dL (5.8-8.1); Sodium 137 mmol/L (136-145)
[2021-02-21 07:54] LABS: Band 5 % (5-11); Eosinophils 1 % (0-10); Hemoglobin 10.7 g/dL (12.0-16.0); Lymphocytes 15 % (21-51); MDiff Complete? YES; Mean Corpuscular HGB CONC 32.5 g/dL (32.0-36.0); Mean Corpuscular Hemoglobin 24.1 pg (27.0-31.0); Mean Corpuscular Volume 74.2 fL (78.0-98.0); Mean Platelet Volume 10.1 fL (7.4-10.4); Monocytes 5 % (0-10); Myelocyte 1 % (0-0); Neutrophil 72 % (42-75); Platelet Count 117 thou/uL (130-400); Platelet Morphology Comment Appears Decreased; RBC Distribution Width 13.9 % (11.5-14.5); RBC Morphology Normal; Red Blood Cell (RBC) Count 4.43 mill/uL (4.20-5.40); White Blood Cell (WBC) Count 8.8 thou/uL (4.8-10.8)
[2021-02-21] MEDS: Bisacodyl 10 MG SUPP PR SCH (08:06)
[2021-02-21] MEDS: Saccharomyces boulardii 250 MG CAP PER TUBE SCH (08:11)
[2021-02-21] MEDS: Multivitamin W/ Minerals 1 TAB PER TUBE SCH (08:11)
[2021-02-21] MEDS: Lantus 1000 UNITS/10 ML VIAL SC SCH ×2 (08:11→20:57)
[2021-02-21] MEDS: Metoprolol Tartrate 25 MG TAB PO SCH ×2 (08:11→20:57)
[2021-02-21] MEDS: HumaLOG 300 UNITS/3 ML VIAL SC PRN (11:17)
[2021-02-21] MEDS: cefTRIAXone\\ROCEPHIN 1 GM in Sodium Chloride 0.9% 100 ML IVPB SCH (11:18)
[2021-02-21] MEDS: Azithromycin 500 MG in Sodium Chloride 0.9% 250 ML 250 ML IVPB SCH (13:20)
[2021-02-21] MEDS: Doxycycline 100 MG CAP PO SCH (20:57)
[2021-02-22] MEDS: HumaLOG 300 UNITS/3 ML VIAL SC PRN ×2 (05:21→16:16)
[2021-02-22] MEDS ORDERED: cefTRIAXone\\ROCEPHIN 1 GM in Sodium Chloride 0.9% 100 ML IVPB SCH (08:15)
[2021-02-22] MEDS ORDERED: Pantoprazole 40 MG GRANULES PACKET PO SCH (09:00)
[2021-02-22] MEDS: Doxycycline 100 MG CAP PO SCH (09:00)
[2021-02-22] MEDS: Saccharomyces boulardii 250 MG CAP PER TUBE SCH (11:50)
[2021-02-22] MEDS: Metoprolol Tartrate 25 MG TAB PO SCH (11:50)
[2021-02-22] MEDS: Multivitamin W/ Minerals 1 TAB PER TUBE SCH (11:50)
[2021-02-22] MEDS: Lantus 1000 UNITS/10 ML VIAL SC SCH (11:51)
[2021-02-22] MEDS: Bisacodyl 10 MG SUPP PR SCH (11:51)
[2021-02-22 13:09] VITALS: BP 139/61; TEMP 98.5
[2021-02-22] MEDS ORDERED: Amoxicillin/Potassium Clav 600 mg/5 ml Oral Suspension PO SCH (21:00)
== END 2021-02-22 19:35 | DRG 871 ==
LOC: ERS 10:08 → ERHOLD 12:57 → 2NO 15:26 → ONC 02-19 20:40
PROVIDERS: ADMIT Internal Medicine; ATTEND Internal Medicine
DX: A41.51 Sepsis due to Escherichia coli [E. coli] (principal); J69.0 Pneumonitis due to inhalation of food and vomit; E43 Unspecified severe protein-calorie malnutrition; G92 Toxic encephalopathy; N39.0 Urinary tract infection, site not specified; N17.9 Acute kidney failure, unspecified; I69.351 Hemiplegia and hemiparesis following cerebral infarction affecting right dominant side; E87.2 Acidosis; E87.1 Hypo-osmolality and hyponatremia; Z79.84 Long term (current) use of oral hypoglycemic drugs; R65.20 Severe sepsis without septic shock; K21.9 Gastro-esophageal reflux disease without esophagitis; E78.5 Hyperlipidemia, unspecified; E53.8 Deficiency of other specified B group vitamins; G40.909 Epilepsy, unspecified, not intractable, without status epilepticus; Z90.49 Acquired absence of other specified parts of digestive tract; Z98.51 Tubal ligation status; Z90.710 Acquired absence of both cervix and uterus; F41.9 Anxiety disorder, unspecified; F32.9 Major depressive disorder, single episode, unspecified; E11.65 Type 2 diabetes mellitus with hyperglycemia; E87.5 Hyperkalemia; I10 Essential (primary) hypertension; K56.41 Fecal impaction; Z68.21 Body mass index [BMI] 21.0-21.9, adult; D53.9 Nutritional anemia, unspecified
CPT/HCPCS: 36415; 36416; 71045; 74176; 80048; 80053; 81003; 81015; 82010; 82274; 82553; 82805; 83690; 83735; 83880; 84100; 84484; 85025; 87077; 87086; 87186; 87635; 93005; C9113; J0456; J0696; J1644; J1815; J3490; J7050; U0003; U0005

== ENCOUNTER 2021-05-05 04:04 | Emergency (ER) | payer MEDICARE, MEDICAID | END 2021-05-05 05:15 | LOC: ERS 04:04 | DX: K94.23 Gastrostomy malfunction (principal); E11.9 Type 2 diabetes mellitus without complications; K21.9 Gastro-esophageal reflux disease without esophagitis; Z86.73 Personal history of transient ischemic attack (TIA), and cerebral infarction without residual deficits; E78.5 Hyperlipidemia, unspecified; I10 Essential (primary) hypertension; F17.200 Nicotine dependence, unspecified, uncomplicated | CPT/HCPCS: 43762 ==

== ENCOUNTER 2021-09-30 08:36 | Inpatient (IN) | payer MEDICARE, MEDICAID ==
[2021-09-30 09:27] LABS: Hemoglobin 15.8 g/dL (12.0-16.0); Mean Corpuscular HGB CONC 31.8 g/dL (32.0-36.0); Mean Corpuscular Hemoglobin 23.5 pg (27.0-31.0); Mean Platelet Volume 14.2 fL (7.4-10.4); Platelet Count 137 thou/uL (130-400); RBC Distribution Width 14.9 % (11.5-14.5); Red Blood Cell (RBC) Count 6.73 mill/uL (4.20-5.40); White Blood Cell (WBC) Count 11.7 thou/uL (4.8-10.8)
[2021-09-30] MEDS ORDERED: Cefepime 2 GM VIAL ONE (09:27)
[2021-09-30] MEDS ORDERED: Vancomycin 1 GM/200 ML BAG ONE (09:27)
[2021-09-30 09:45] LABS: Bacteria/HPF 3+ HPF (None Seen); Bilirubin Negative (Negative); Blood, Urine Negative (Negative); Clarity Extra Turbid (Clear); Glucose, Urine (Dipstick) Normal (Negative); Ketone, Urine Negative (Negative); Leukocyte 500 Leu/uL (Negative); Nitrite 1+ (Negative); Protein, Urine (Dipstick) Greater than 600 mg/dL (Neg-Trace); RBC/HPF 0-3 HPF (0-3); Specific Gravity, Urine 1.015 (1.002-1.036); Squamous Epithelial None Seen HPF (0-3); Urobilinogen Normal mg/dL (Less than 2); pH, Urine 8.5 (5.0-9.0)
[2021-09-30 09:47] LABS: ALT (SGPT) 9 U/L (8-55); AST (SGOT) 17 U/L (5-34); Albumin 3.6 g/dL (3.4-4.8); Alkaline Phosphatase 76 U/L (40-110); Anion Gap 24 mmol/L (10-20); BUN (Urea Nitrogen) 41 mg/dL (9.8-20.1); Bilirubin, Total 0.6 mg/dL (0.2-1.2); CK (CPK) 35 U/L (29-168); Calc. Creatinine Clearance 0 mL/min (70-130); Calcium 10.6 mg/dL (7.8-10.44); Carbon Dioxide 17 mmol/L (23-31); Chloride 103 mmol/L (98-107); Globulin 5.3 g/dL (2.4-3.5); Lipase 20 U/L (8-78); Magnesium 2.5 mg/dL (1.6-2.6); Potassium 5.2 mmol/L (3.5-5.1); Protein, Total 8.9 g/dL (5.8-8.1); Sodium 139 mmol/L (136-145)
[2021-09-30 09:48] LABS: Triple Phosphate Crystal 2+ HPF (None Seen)
[2021-09-30] MEDS ORDERED: Ondansetron PF 4 MG/2 ML Vial ONE (10:00)
[2021-09-30 10:01] LABS: Glucose 673 mg/dL (83-110)
[2021-09-30 10:03] LABS: Band 29 % (5-11); Lymphocytes 9 % (21-51); MDiff Complete? YES; Metamyelocyte 1 % (0-0); Monocytes 12 % (0-10); Neutrophil 49 % (42-75); Platelet Morphology Comment Appears Adequate; RBC Morphology Normal
[2021-09-30 10:09] LABS: CKMB 0.3 ng/mL (0-6.6)
[2021-09-30] MEDS ORDERED: Iopamidol-370 76% 500 ML 1 ML ONE (10:52)
[2021-09-30 12:50] LABS: Lactic Acid 6.9 mmol/L (0.5-2.2)
[2021-09-30] MEDS ORDERED: Acetaminophen 325 MG TAB PER TUBE PRN (17:10)
[2021-09-30] MEDS ORDERED: Senokot S 8.6-50 MG TAB PER TUBE PRN (17:10)
[2021-09-30] MEDS: Sodium Chloride 0.9% 1,000 ML IV SCH ×2 (17:33→20:48)
[2021-09-30 17:34] VITALS: BMI 22.2
[2021-09-30] MEDS ORDERED: Vancomycin HCl 750 MG in Sodium Chloride 0.9% 250 ML 250 ML IVPB SCH (18:30)
[2021-09-30] MEDS ORDERED: Dextrose 5% in Water 1,000 ML IV PRN (18:59)
[2021-09-30] MEDS ORDERED: Dextrose 50% Abboject 50 ML SYRINGE SLOW IVP PRN (18:59)
[2021-09-30] MEDS ORDERED: Lactulose 10 GM/15 ML Oral Solution PER TUBE PRN (19:38)
[2021-09-30] MEDS ORDERED: FLU VACC QS2021-22(65YR UP)/PF 240 MCG/0.7 ML SYRINGE IM ONE (20:00)
[2021-09-30] MEDS: Famotidine/PF 20 mg/2ml Vial SLOW IVP SCH (20:48)
[2021-09-30] MEDS: Metoprolol Tartrate 25 MG TAB PO SCH (20:49)
[2021-09-30] MEDS: Heparin 5,000 UNITS/ML VIAL SC SCH (20:49)
[2021-09-30] MEDS: HumaLOG 300 UNITS/3 ML VIAL SC PRN (20:50)
[2021-09-30 21:55] LABS: Troponin I 0.073 ng/mL (< 0.028)
[2021-09-30 21:58] LABS: Anion Gap 12 mmol/L (10-20); BUN (Urea Nitrogen) 34 mg/dL (9.8-20.1); Calc. Creatinine Clearance 34 mL/min (70-130); Calcium 8.9 mg/dL (7.8-10.44); Carbon Dioxide 24 mmol/L (23-31); Chloride 112 mmol/L (98-107); Glucose 421 mg/dL (83-110); Potassium 5.4 mmol/L (3.5-5.1); Sodium 143 mmol/L (136-145)
[2021-10-01 00:19] LABS: Lactic Acid 2.8 mmol/L (0.5-2.2)
[2021-10-01] MEDS: Sodium Chloride 0.9% 1,000 ML IV SCH ×3 (02:09→13:49)
[2021-10-01] MEDS: HumaLOG 300 UNITS/3 ML VIAL SC PRN ×2 (06:18→21:07)
[2021-10-01 06:45] LABS: ALT (SGPT) 9 U/L (8-55); AST (SGOT) 15 U/L (5-34); Albumin 2.7 g/dL (3.4-4.8); Alkaline Phosphatase 59 U/L (40-110); Anion Gap 10 mmol/L (10-20); BUN (Urea Nitrogen) 35 mg/dL (9.8-20.1); Bilirubin, Total 0.2 mg/dL (0.2-1.2); Calc. Creatinine Clearance 46 mL/min (70-130); Calcium 8.4 mg/dL (7.8-10.44); Carbon Dioxide 25 mmol/L (23-31); Cardiac Risk 4.9 (Less than 4.5); Chloride 117 mmol/L (98-107); Cholesterol 98 mg/dl (< 200 Desired); Globulin 3.7 g/dL (2.4-3.5); Glucose 274 mg/dL (83-110); HDL Cholesterol 20 mg/dL (>60 Neg Risk); LDL Cholesterol, Calculated 27 mg/dL; Potassium 4.5 mmol/L (3.5-5.1); Protein, Total 6.4 g/dL (5.8-8.1); Sodium 147 mmol/L (136-145); Triglycerides 254 mg/dL (Less than 150)
[2021-10-01] MEDS ORDERED: Cefepime 1 GM in Sodium Chloride 0.9% 100 ML IVPB SCH (09:00)
[2021-10-01 09:42] LABS: #Lymphocytes 1.4 thou/uL (1.20-3.40); #Monocytes 0.8 thou/uL (0.11-0.59); #Neutrophils 7.6 thou/uL (1.40-6.50); %Basophils 0.1 % (0.0-1.0); %Eosinophils 0.1 % (0.0-10.0); %Lymphocytes 14.5 % (21.0-51.0); %Monocytes 8.1 % (0.0-10.0); %Neutrophils 77.2 % (42.0-75.0); Band 22 % (5-11); Hemoglobin 11.4 g/dL (12.0-16.0); Lymphocytes 15 % (21-51); MDiff Complete? YES; Mean Corpuscular HGB CONC 31.1 g/dL (32.0-36.0); Mean Corpuscular Hemoglobin 23.4 pg (27.0-31.0); Mean Corpuscular Volume 75.3 fL (78.0-98.0); Mean Platelet Volume 13.1 fL (7.4-10.4); Neutrophil 63 % (42-75); Platelet Count 118 thou/uL (130-400); Platelet Morphology Comment Appears Decreased; RBC Distribution Width 13.7 % (11.5-14.5); Red Blood Cell (RBC) Count 4.88 mill/uL (4.20-5.40); White Blood Cell (WBC) Count 9.8 thou/uL (4.8-10.8)
[2021-10-01] MEDS: Clopidogrel Bisulfate 75 MG TAB PER TUBE SCH (10:25)
[2021-10-01] MEDS: Metoprolol Tartrate 25 MG TAB PO SCH ×2 (10:25→21:08)
[2021-10-01] MEDS: Polyethylene Glycol 3350 17 GM Packet PER TUBE SCH (10:25)
[2021-10-01] MEDS: Bisacodyl 10 MG SUPP PR SCH (10:26)
[2021-10-01] MEDS: Saccharomyces boulardii 250 MG CAP PER TUBE SCH (10:26)
[2021-10-01] MEDS: Multivits W-Minerals Liquid 15 ML LIQ PER TUBE SCH (10:26)
[2021-10-01] MEDS: Heparin 5,000 UNITS/ML VIAL SC SCH ×2 (10:27→21:00)
[2021-10-01 11:28] LABS: Vancomycin, Random 7.4 ug/mL (See Comment)
[2021-10-01] MEDS: Vancomycin HCl 750 MG in Sodium Chloride 0.9% 250 ML 250 ML IVPB SCH (13:47)
[2021-10-01] MEDS: Sodium Chloride 0.45% 1,000 ML IV SCH ×2 (17:08→20:59)
[2021-10-01] MEDS: Cefepime 2 GM in Sodium Chloride 0.9% 100 ML IVPB SCH (20:59)
[2021-10-01] MEDS: Famotidine/PF 20 mg/2ml Vial SLOW IVP SCH (21:00)
[2021-10-02] MEDS: HumaLOG 300 UNITS/3 ML VIAL SC PRN ×2 (06:18→17:50)
[2021-10-02] MEDS: Sodium Chloride 0.45% 1,000 ML IV SCH ×4 (08:00→22:54)
[2021-10-02] MEDS: Bisacodyl 10 MG SUPP PR SCH (10:15)
[2021-10-02] MEDS: Polyethylene Glycol 3350 17 GM Packet PER TUBE SCH (10:16)
[2021-10-02] MEDS: Multivits W-Minerals Liquid 15 ML LIQ PER TUBE SCH (10:48)
[2021-10-02] MEDS: Heparin 5,000 UNITS/ML VIAL SC SCH ×2 (10:48→21:22)
[2021-10-02] MEDS: Clopidogrel Bisulfate 75 MG TAB PER TUBE SCH (10:49)
[2021-10-02] MEDS: Saccharomyces boulardii 250 MG CAP PER TUBE SCH (10:49)
[2021-10-02] MEDS: Cefepime 2 GM in Sodium Chloride 0.9% 100 ML IVPB SCH ×2 (10:49→21:21)
[2021-10-02] MEDS: Metoprolol Tartrate 25 MG TAB PO SCH ×2 (10:49→21:22)
[2021-10-02] MEDS: Vancomycin HCl 750 MG in Sodium Chloride 0.9% 250 ML 250 ML IVPB SCH (13:10)
[2021-10-02 17:27] LABS: #Eosinphils 0.4 thou/uL (0.0-0.7); #Lymphocytes 1.9 thou/uL (1.20-3.40); #Monocytes 0.5 thou/uL (0.11-0.59); #Neutrophils 4.1 thou/uL (1.40-6.50); %Basophils 0.3 % (0.0-1.0); %Eosinophils 5.5 % (0.0-10.0); %Lymphocytes 27.3 % (21.0-51.0); %Monocytes 7.7 % (0.0-10.0); %Neutrophils 59.2 % (42.0-75.0); Hemoglobin 11.6 g/dL (12.0-16.0); Mean Corpuscular HGB CONC 31.5 g/dL (32.0-36.0); Mean Corpuscular Hemoglobin 24.5 pg (27.0-31.0); Mean Corpuscular Volume 77.7 fL (78.0-98.0); Mean Platelet Volume 9.2 fL (7.4-10.4); Platelet Count 101 thou/uL (130-400); RBC Distribution Width 13.7 % (11.5-14.5); Red Blood Cell (RBC) Count 4.76 mill/uL (4.20-5.40)
[2021-10-02 17:35] LABS: Anion Gap 14 mmol/L (10-20); BUN (Urea Nitrogen) 19 mg/dL (9.8-20.1); Calc. Creatinine Clearance 58 mL/min (70-130); Calcium 8.3 mg/dL (7.8-10.44); Carbon Dioxide 20 mmol/L (23-31); Chloride 108 mmol/L (98-107); Glucose 190 mg/dL (83-110); Potassium 4.1 mmol/L (3.5-5.1); Sodium 138 mmol/L (136-145)
[2021-10-02 20:54] LABS: Lactic Acid 2.4 mmol/L (0.5-2.2)
[2021-10-02] MEDS: Famotidine/PF 20 mg/2ml Vial SLOW IVP SCH (21:22)
[2021-10-03] MEDS: HumaLOG 300 UNITS/3 ML VIAL SC PRN ×2 (06:07→17:11)
[2021-10-03] MEDS: Sodium Chloride 0.45% 1,000 ML IV SCH ×2 (06:39→10:04)
[2021-10-03 06:40] LABS: Hemoglobin 12.9 g/dL (12.0-16.0); Mean Corpuscular HGB CONC 33.8 g/dL (32.0-36.0); Mean Corpuscular Hemoglobin 24.9 pg (27.0-31.0); Mean Corpuscular Volume 73.6 fL (78.0-98.0); Mean Platelet Volume 10.2 fL (7.4-10.4); Platelet Count 124 thou/uL (130-400); RBC Distribution Width 14.4 % (11.5-14.5); Red Blood Cell (RBC) Count 5.19 mill/uL (4.20-5.40); White Blood Cell (WBC) Count 6.8 thou/uL (4.8-10.8)
[2021-10-03 06:52] LABS: #Eosinphils 0.5 thou/uL (0.0-0.7); #Lymphocytes 1.7 thou/uL (1.20-3.40); #Monocytes 0.5 thou/uL (0.11-0.59); %Basophils 0.3 % (0.0-1.0); %Eosinophils 6.8 % (0.0-10.0); %Lymphocytes 25.8 % (21.0-51.0); %Monocytes 7.5 % (0.0-10.0); %Neutrophils 59.7 % (42.0-75.0)
[2021-10-03] MEDS: Cefepime 2 GM in Sodium Chloride 0.9% 100 ML IVPB SCH ×2 (09:52→21:34)
[2021-10-03] MEDS: Metoprolol Tartrate 25 MG TAB PO SCH ×2 (09:53→21:36)
[2021-10-03] MEDS: Bisacodyl 10 MG SUPP PR SCH (09:53)
[2021-10-03] MEDS: Clopidogrel Bisulfate 75 MG TAB PER TUBE SCH (09:53)
[2021-10-03] MEDS: Heparin 5,000 UNITS/ML VIAL SC SCH ×2 (09:53→21:37)
[2021-10-03] MEDS: Polyethylene Glycol 3350 17 GM Packet PER TUBE SCH (09:54)
[2021-10-03] MEDS: Saccharomyces boulardii 250 MG CAP PER TUBE SCH (09:54)
[2021-10-03] MEDS: Multivits W-Minerals Liquid 15 ML LIQ PER TUBE SCH (09:55)
[2021-10-03 11:04] LABS: Calcium 8.7 mg/dL (7.8-10.44); Chloride 103 mmol/L (98-107); Potassium 4.3 mmol/L (3.5-5.1); Sodium 136 mmol/L (136-145)
[2021-10-03 11:05] LABS: Glucose 143 mg/dL (83-110)
[2021-10-03 11:06] LABS: Anion Gap 14 mmol/L (10-20); Carbon Dioxide 23 mmol/L (23-31)
[2021-10-03 11:08] LABS: Calc. Creatinine Clearance 64 mL/min (70-130)
[2021-10-03 11:09] LABS: BUN (Urea Nitrogen) 14 mg/dL (9.8-20.1)
[2021-10-03 11:19] LABS: Vancomycin, Trough 7.7 ug/mL
[2021-10-03] MEDS: Vancomycin HCl 750 MG in Sodium Chloride 0.9% 250 ML 250 ML IVPB SCH (12:32)
[2021-10-03] MEDS: Famotidine/PF 20 mg/2ml Vial SLOW IVP SCH (21:36)
[2021-10-04] MEDS: Vancomycin HCl 750 MG in Sodium Chloride 0.9% 250 ML 250 ML IVPB SCH ×2 (01:23→12:41)
[2021-10-04] MEDS: Sodium Chloride 0.45% 1,000 ML IV SCH ×2 (04:03→18:05)
[2021-10-04] MEDS: HumaLOG 300 UNITS/3 ML VIAL SC PRN ×3 (06:18→18:04)
[2021-10-04 06:23] LABS: Anion Gap 14 mmol/L (10-20); BUN (Urea Nitrogen) 16 mg/dL (9.8-20.1); Calc. Creatinine Clearance 56 mL/min (70-130); Calcium 8.9 mg/dL (7.8-10.44); Carbon Dioxide 26 mmol/L (23-31); Chloride 101 mmol/L (98-107); Glucose 247 mg/dL (83-110); Potassium 4.5 mmol/L (3.5-5.1); Sodium 136 mmol/L (136-145)
[2021-10-04 06:24] LABS: Mean Corpuscular Hemoglobin 24.2 pg (27.0-31.0); Mean Corpuscular Volume 73.5 fL (78.0-98.0); Mean Platelet Volume 11.6 fL (7.4-10.4); Platelet Count 109 thou/uL (130-400); RBC Distribution Width 13.6 % (11.5-14.5); Red Blood Cell (RBC) Count 4.95 mill/uL (4.20-5.40); White Blood Cell (WBC) Count 5.5 thou/uL (4.8-10.8)
[2021-10-04 08:20] LABS: #Basophils 0.2 thou/uL (0.0-0.2); #Eosinphils 0.6 thou/uL (0.0-0.7); #Lymphocytes 1.5 thou/uL (1.20-3.40); #Monocytes 0.4 thou/uL (0.11-0.59); #Neutrophils 2.9 thou/uL (1.40-6.50); %Basophils 2.8 % (0.0-1.0); %Eosinophils 10.6 % (0.0-10.0); %Lymphocytes 27.7 % (21.0-51.0); %Monocytes 6.9 % (0.0-10.0); %Neutrophils 52.1 % (42.0-75.0); MDiff Complete? YES; Microcytosis SLIGHT = 6-15 cells (100X) (0-5/hpf); Platelet Morphology Comment Appears Decreased; Polychromasia SLIGHT = 2-3 cells (100X) (0-2/hpf)
[2021-10-04] MEDS ORDERED: hydrALAZINE 20 MG/ML VIAL SLOW IVP PRN (08:35)
[2021-10-04] MEDS: Saccharomyces boulardii 250 MG CAP PER TUBE SCH (09:21)
[2021-10-04] MEDS: Clopidogrel Bisulfate 75 MG TAB PER TUBE SCH (09:21)
[2021-10-04] MEDS: Multivits W-Minerals Liquid 15 ML LIQ PER TUBE SCH (09:22)
[2021-10-04] MEDS: Cefepime 2 GM in Sodium Chloride 0.9% 100 ML IVPB SCH ×2 (09:23→22:43)
[2021-10-04] MEDS: Polyethylene Glycol 3350 17 GM Packet PER TUBE SCH (09:23)
[2021-10-04] MEDS: Metoprolol Tartrate 25 MG TAB PO SCH ×2 (09:24→22:38)
[2021-10-04] MEDS: Bisacodyl 10 MG SUPP PR SCH (09:25)
[2021-10-04] MEDS: Amlodipine 5 MG TAB PO SCH ×2 (09:29→22:39)
[2021-10-04] MEDS: Heparin 5,000 UNITS/ML VIAL SC SCH ×2 (10:27→22:42)
[2021-10-04] MEDS: Famotidine/PF 20 mg/2ml Vial SLOW IVP SCH (22:43)
[2021-10-04 23:15] LABS: Vancomycin, Trough 16.1 ug/mL
[2021-10-05] MEDS: Vancomycin HCl 750 MG in Sodium Chloride 0.9% 250 ML 250 ML IVPB SCH ×2 (00:10→12:24)
[2021-10-05] MEDS: Sodium Chloride 0.45% 1,000 ML IV SCH ×2 (04:34→21:29)
[2021-10-05] MEDS: HumaLOG 300 UNITS/3 ML VIAL SC PRN ×2 (06:08→22:45)
[2021-10-05 06:59] LABS: #Basophils 0.1 thou/uL (0.0-0.2); #Eosinphils 0.9 thou/uL (0.0-0.7); #Lymphocytes 1.4 thou/uL (1.20-3.40); #Monocytes 0.4 thou/uL (0.11-0.59); #Neutrophils 4.4 thou/uL (1.40-6.50); %Basophils 0.8 % (0.0-1.0); %Eosinophils 12.7 % (0.0-10.0); %Monocytes 5.6 % (0.0-10.0); Hemoglobin 12.1 g/dL (12.0-16.0); Mean Corpuscular HGB CONC 32.3 g/dL (32.0-36.0); Mean Corpuscular Hemoglobin 23.4 pg (27.0-31.0); Mean Corpuscular Volume 72.5 fL (78.0-98.0); Mean Platelet Volume 10.6 fL (7.4-10.4); Platelet Count 117 thou/uL (130-400); RBC Distribution Width 13.6 % (11.5-14.5); Red Blood Cell (RBC) Count 5.19 mill/uL (4.20-5.40); White Blood Cell (WBC) Count 7.2 thou/uL (4.8-10.8)
[2021-10-05 07:17] LABS: Anion Gap 10 mmol/L (10-20); BUN (Urea Nitrogen) 13 mg/dL (9.8-20.1); Calc. Creatinine Clearance 70 mL/min (70-130); Calcium 9.3 mg/dL (7.8-10.44); Carbon Dioxide 27 mmol/L (23-31); Chloride 101 mmol/L (98-107); Glucose 249 mg/dL (83-110); Potassium 3.8 mmol/L (3.5-5.1); Sodium 134 mmol/L (136-145)
[2021-10-05] MEDS: Metoprolol Tartrate 25 MG TAB PO SCH ×2 (09:25→21:32)
[2021-10-05] MEDS: Amlodipine 5 MG TAB PO SCH ×2 (09:25→21:32)
[2021-10-05] MEDS: Saccharomyces boulardii 250 MG CAP PER TUBE SCH (09:26)
[2021-10-05] MEDS: Clopidogrel Bisulfate 75 MG TAB PER TUBE SCH (09:26)
[2021-10-05] MEDS: Heparin 5,000 UNITS/ML VIAL SC SCH ×2 (09:27→21:30)
[2021-10-05] MEDS: Multivits W-Minerals Liquid 15 ML LIQ PER TUBE SCH (09:27)
[2021-10-05] MEDS: Cefepime 2 GM in Sodium Chloride 0.9% 100 ML IVPB SCH ×2 (09:27→21:29)
[2021-10-05] MEDS: Polyethylene Glycol 3350 17 GM Packet PER TUBE SCH (09:28)
[2021-10-05] MEDS: Bisacodyl 10 MG SUPP PR SCH (09:28)
[2021-10-05 09:47] LABS: MDiff Complete? YES; Microcytosis SLIGHT = 6-15 cells (100X) (0-5/hpf); Platelet Morphology Comment Appears Decreased; Polychromasia SLIGHT = 2-3 cells (100X) (0-2/hpf)
[2021-10-05] MEDS: Famotidine/PF 20 mg/2ml Vial SLOW IVP SCH (21:31)
[2021-10-06] MEDS: Vancomycin HCl 750 MG in Sodium Chloride 0.9% 250 ML 250 ML IVPB SCH ×2 (00:10→11:46)
[2021-10-06] MEDS: HumaLOG 300 UNITS/3 ML VIAL SC PRN ×3 (05:35→23:10)
[2021-10-06] MEDS: Metoprolol Tartrate 25 MG TAB PO SCH ×2 (08:46→20:57)
[2021-10-06] MEDS: Amlodipine 5 MG TAB PO SCH ×2 (08:46→20:57)
[2021-10-06] MEDS: Heparin 5,000 UNITS/ML VIAL SC SCH ×2 (08:46→20:58)
[2021-10-06] MEDS: Bisacodyl 10 MG SUPP PR SCH (08:46)
[2021-10-06] MEDS: Clopidogrel Bisulfate 75 MG TAB PER TUBE SCH (08:47)
[2021-10-06] MEDS: Cefepime 2 GM in Sodium Chloride 0.9% 100 ML IVPB SCH ×2 (08:47→20:59)
[2021-10-06] MEDS: Saccharomyces boulardii 250 MG CAP PER TUBE SCH (08:47)
[2021-10-06] MEDS: Famotidine/PF 20 mg/2ml Vial SLOW IVP SCH ×2 (08:47→20:58)
[2021-10-06] MEDS: Polyethylene Glycol 3350 17 GM Packet PER TUBE SCH (08:48)
[2021-10-06] MEDS: Multivits W-Minerals Liquid 15 ML LIQ PER TUBE SCH (08:48)
[2021-10-06] MEDS: Sodium Chloride 0.45% 1,000 ML IV SCH ×2 (08:55→23:23)
[2021-10-06 23:14] LABS: Vancomycin, Trough 23.3 ug/mL
[2021-10-07] MEDS: Vancomycin HCl 500 MG in Sodium Chloride 0.9% 100 ML IVPB SCH ×3 (00:08→23:26)
[2021-10-07] MEDS: Sodium Chloride 0.45% 1,000 ML IV SCH ×2 (05:35→20:18)
[2021-10-07] MEDS: HumaLOG 300 UNITS/3 ML VIAL SC PRN (06:09)
[2021-10-07] MEDS: Saccharomyces boulardii 250 MG CAP PER TUBE SCH (09:37)
[2021-10-07] MEDS: Bisacodyl 10 MG SUPP PR SCH (09:37)
[2021-10-07] MEDS: Multivits W-Minerals Liquid 15 ML LIQ PER TUBE SCH (09:37)
[2021-10-07] MEDS: Cefepime 2 GM in Sodium Chloride 0.9% 100 ML IVPB SCH ×2 (09:37→20:15)
[2021-10-07] MEDS: Clopidogrel Bisulfate 75 MG TAB PER TUBE SCH (09:37)
[2021-10-07] MEDS: Metoprolol Tartrate 25 MG TAB PO SCH ×2 (09:38→20:12)
[2021-10-07] MEDS: Famotidine/PF 20 mg/2ml Vial SLOW IVP SCH ×2 (09:38→20:15)
[2021-10-07] MEDS: Heparin 5,000 UNITS/ML VIAL SC SCH ×2 (09:38→20:16)
[2021-10-07] MEDS: Amlodipine 5 MG TAB PO SCH ×2 (09:44→20:13)
[2021-10-07] MEDS: Polyethylene Glycol 3350 17 GM Packet PER TUBE SCH (09:45)
[2021-10-08] MEDS: HumaLOG 300 UNITS/3 ML VIAL SC PRN ×2 (04:38→11:50)
[2021-10-08 07:56] LABS: Calc. Creatinine Clearance 57 mL/min (70-130)
[2021-10-08 08:22] VITALS: BP 115/74; TEMP 97.6
[2021-10-08] MEDS: Heparin 5,000 UNITS/ML VIAL SC SCH (08:52)
[2021-10-08] MEDS: Saccharomyces boulardii 250 MG CAP PER TUBE SCH (08:52)
[2021-10-08] MEDS: Famotidine/PF 20 mg/2ml Vial SLOW IVP SCH (08:52)
[2021-10-08] MEDS: Amlodipine 5 MG TAB PO SCH (08:52)
[2021-10-08] MEDS: Polyethylene Glycol 3350 17 GM Packet PER TUBE SCH (08:52)
[2021-10-08] MEDS: Bisacodyl 10 MG SUPP PR SCH (08:53)
[2021-10-08] MEDS: Metoprolol Tartrate 25 MG TAB PO SCH (08:53)
[2021-10-08] MEDS: Multivits W-Minerals Liquid 15 ML LIQ PER TUBE SCH (08:53)
[2021-10-08] MEDS: Cefepime 2 GM in Sodium Chloride 0.9% 100 ML IVPB SCH (08:53)
[2021-10-08] MEDS: Clopidogrel Bisulfate 75 MG TAB PER TUBE SCH (08:53)
[2021-10-08] MEDS: Vancomycin HCl 500 MG in Sodium Chloride 0.9% 100 ML IVPB SCH (11:54)
[2021-10-08 16:45] LABS: SARS-CoV-2 NAA Rapid Test Not Detected (NotDetected)
== END 2021-10-08 16:39 | DRG 393 ==
LOC: ERS 08:36 → 2SW 13:48 → T4-B 10-04 20:07
PROVIDERS: ADMIT Internal Medicine; ATTEND Internal Medicine
DX: K94.22 Gastrostomy infection (principal); A41.59 Other Gram-negative sepsis; G93.41 Metabolic encephalopathy; A41.02 Sepsis due to Methicillin resistant Staphylococcus aureus; R65.20 Severe sepsis without septic shock; N17.9 Acute kidney failure, unspecified; N30.00 Acute cystitis without hematuria; E44.0 Moderate protein-calorie malnutrition; E87.0 Hyperosmolality and hypernatremia; D64.9 Anemia, unspecified; K21.9 Gastro-esophageal reflux disease without esophagitis; E78.5 Hyperlipidemia, unspecified; I10 Essential (primary) hypertension; F41.9 Anxiety disorder, unspecified; F32.9 Major depressive disorder, single episode, unspecified; E11.65 Type 2 diabetes mellitus with hyperglycemia; G40.909 Epilepsy, unspecified, not intractable, without status epilepticus; R77.8 Other specified abnormalities of plasma proteins; E87.5 Hyperkalemia; E83.42 Hypomagnesemia; E83.52 Hypercalcemia; E86.0 Dehydration; Y83.8 Other surgical procedures as the cause of abnormal reaction of the patient, or of later complication, without mention of misadventure at the time of the procedure; Z20.822 Contact with and (suspected) exposure to COVID-19; Z86.73 Personal history of transient ischemic attack (TIA), and cerebral infarction without residual deficits; Z90.49 Acquired absence of other specified parts of digestive tract; Z90.710 Acquired absence of both cervix and uterus; Z98.51 Tubal ligation status; Z79.899 Other long term (current) drug therapy; Z98.890 Other specified postprocedural states; Z68.22 Body mass index [BMI] 22.0-22.9, adult
CPT/HCPCS: 36415; 36416; 71045; 74177; 80048; 80053; 80061; 80202; 81003; 81015; 82140; 82550; 82553; 82565; 83036; 83605; 83690; 83735; 84134; 84145; 84443; 84484; 85025; 86140; 87040; 87070; 87077; 87086; 87149; 87186; 87205; 93005; 96365; 96366; 96367; 96375; J0692; J1644; J1815; J2405; J3370; J3490; J7050; Q9967; S0028; U0002

== ENCOUNTER 2022-03-20 23:16 | Emergency (ER) | payer MEDICARE, MEDICAID | END 2022-03-20 23:32 | LOC: ERS 23:16 | DX: Z43.1 Encounter for attention to gastrostomy (principal); E11.9 Type 2 diabetes mellitus without complications; D64.9 Anemia, unspecified; I10 Essential (primary) hypertension | CPT/HCPCS: 43762 ==

== ENCOUNTER 2022-06-11 12:51 | Emergency (ER) | payer MEDICARE, OTHER ==
[~2022-06-11 12:51] MED LIST changes: +GASTROGRAFIN 30 ML BOT ONE; -ISOVUE-370 76%-LOCM 1 ML ONE
[2022-06-11] MEDS ORDERED: Sodium Bicarb 50 MEQ/50 ML VIAL FS SCH (15:00)
== END 2022-06-11 20:50 ==
LOC: ERS 12:51
DX: K94.23 Gastrostomy malfunction (principal); E11.9 Type 2 diabetes mellitus without complications; I10 Essential (primary) hypertension; E87.5 Hyperkalemia; Z86.16 Personal history of COVID-19; Z79.02 Long term (current) use of antithrombotics/antiplatelets
CPT/HCPCS: 43762; 74018; Q9963

== ENCOUNTER 2022-06-22 10:17 | Emergency (ER) | payer MEDICARE, OTHER | END 2022-06-22 15:29 | LOC: ERS 10:17 | DX: K94.23 Gastrostomy malfunction (principal); I10 Essential (primary) hypertension; E11.9 Type 2 diabetes mellitus without complications; E78.5 Hyperlipidemia, unspecified; K21.9 Gastro-esophageal reflux disease without esophagitis; D64.9 Anemia, unspecified; G40.909 Epilepsy, unspecified, not intractable, without status epilepticus; Z86.16 Personal history of COVID-19; Z86.73 Personal history of transient ischemic attack (TIA), and cerebral infarction without residual deficits | CPT/HCPCS: 43762; 74018; Q9963 ==

== ENCOUNTER 2022-10-23 20:05 | Inpatient (IN) | payer MEDICARE, MEDICAID ==
[2022-10-23 21:14] LABS: Actual Bicarbonate (HCO3v) 26 mEq/L (22-28); Analyzer IN Cardio ER; Base Excess 2.8 mEq/L (-2.0 to +3.0); Calcium, Ionized (venous) 1.16 mmol/L (1.16-1.32); Chloride (VBG) 114 mmol/L (98-106); Hemoglobin (Hb) 15.8 g/dL (11.7-16.1); Potassium (VBG) 5.57 mmol/L (3.70-5.30); Sodium 150.5 mmol/L (133-146); pH (venous) 7.47 (7.32-7.43)
[2022-10-23 21:35] LABS: Bacteria/HPF 3+ HPF (None Seen); Bilirubin Negative (Negative); Blood, Urine Trace (Negative); Clarity Turbid (Clear); Glucose, Urine (Dipstick) Greater than 1000 mg/dL (Negative); Ketone, Urine Negative (Negative); Leukocyte Negative Leu/uL (Negative); Nitrite Negative (Negative); Protein, Urine (Dipstick) 50 mg/dL (Neg-Trace); Specific Gravity, Urine 1.028 (1.002-1.036); Squamous Epithelial Greater than 50 HPF (0-3); Urobilinogen Normal mg/dL (Less than 2); pH, Urine 5.5 (5.0-9.0)
[2022-10-23 22:04] LABS: #Eosinphils 0.1 thou/uL (0.0-0.7); #Lymphocytes 1.6 thou/uL (1.20-3.40); #Monocytes 0.8 thou/uL (0.11-0.59); #Neutrophils 10.2 thou/uL (1.40-6.50); %Basophils 0.2 % (0.0-1.0); %Eosinophils 0.4 % (0.0-10.0); %Lymphocytes 12.8 % (21.0-51.0); %Monocytes 6.5 % (0.0-10.0); Hemoglobin 14.6 g/dL (12.0-16.0); Mean Corpuscular HGB CONC 30.8 g/dL (32.0-36.0); Mean Corpuscular Hemoglobin 23.4 pg (27.0-31.0); Mean Corpuscular Volume 75.9 fl (78.0-98.0); Mean Platelet Volume 12.8 fL (7.4-10.4); Platelet Count 132 10x3/uL (130-400); RBC Distribution Width 14.4 % (11.5-14.5); Red Blood Cell (RBC) Count 6.25 mill/uL (4.20-5.40); White Blood Cell (WBC) Count 12.8 10x3/uL (4.8-10.8)
[2022-10-23 22:09] LABS: SARS-CoV-2 NAA Rapid Test Not Detected (NotDetected)
[2022-10-23 22:21] LABS: Acetaminophen Less than 10.0 mcg/mL (10.0-30.0); Alcohol Less than 10 mg/dL (Less than 10); Salicylate Less than 8.0 mg/dL (15.0-30.0)
[2022-10-23 22:25] LABS: ALT (SGPT) Less than 7 U/L (8-55); AST (SGOT) 19 U/L (5-34); Albumin 3.5 g/dL (3.4-4.8); Alkaline Phosphatase 80 U/L (40-110); Anion Gap 22 mmol/L (10-20); BUN (Urea Nitrogen) 67 mg/dL (9.8-20.1); Bilirubin, Total 0.2 mg/dL (0.2-1.2); Calc. Creatinine Clearance 0 mL/min (70-130); Carbon Dioxide 22 mmol/L (23-31); Chloride 113 mmol/L (98-107); Estimated GFR 33; Globulin 4.8 g/dL (2.4-3.5); Lipase 114 U/L (8-78); Protein, Total 8.3 g/dL (5.8-8.1)
[2022-10-23] MEDS ORDERED: Cefepime 2 GM VIAL ONE (22:27)
[2022-10-23 22:29] LABS: Glucose 585 mg/dL (83-110); Sodium 152 mmol/L (136-145)
[2022-10-23] MEDS ORDERED: Vancomycin HCl 750 MG in Sodium Chloride 0.9% 250 ML 250 ML IVPB SCH (22:30)
[2022-10-23] MEDS ORDERED: Insulin Regular 300 UNITS/3 ML VIAL ONE ×2 (22:57→23:01)
[2022-10-24 00:31] LABS: Amphetamine Not Detected (NotDetected); Barbiturates Screen Not Detected (NotDetected); Benzodiazepine Screen Not Detected (NotDetected); Cocaine Metabolite Screen Not Detected (NotDetected); Methadone Not Detected (NotDetected); Methamphetamine Not Detected (NotDetected); Opiate Screen Not Detected (NotDetected); Oxycodone Screen Not Detected (NotDetected); Phencyclidine (PCP) Not Detected (NotDetected); THC/Cannabinoid Screen Not Detected (NotDetected); Tricyclic Screen Not Detected (NotDetected)
[2022-10-24] MEDS ORDERED: GUAIFENESIN SF SOLN 200 MG/10 ML UDCUP PER TUBE PRN (00:39)
[2022-10-24] MEDS ORDERED: Senokot S 8.6-50 MG TAB PER TUBE PRN (00:43)
[2022-10-24] MEDS ORDERED: Acetaminophen 650 MG Suppository PR PRN (00:43)
[2022-10-24] MEDS ORDERED: Dextrose 5% in Water 1,000 ML IV PRN (00:46)
[2022-10-24] MEDS ORDERED: Dextrose 50% Abboject 50 ML SYRINGE SLOW IVP PRN (00:46)
[2022-10-24 01:05] LABS: Lactic Acid 4.4 mmol/L (0.5-2.2)
[2022-10-24] MEDS ORDERED: Vancomycin Dose by Levels Sliding Scale (Wt <71) FS SCH (04:45)
[2022-10-24] MEDS ORDERED: HumaLOG 300 UNITS/3 ML VIAL ONE (05:08)
[2022-10-24] MEDS: HumaLOG 300 UNITS/3 ML VIAL SC PRN ×2 (05:15→12:47)
[2022-10-24] MEDS: Dextrose 5% in Water 1,000 ML IV SCH ×2 (05:15→15:14)
[2022-10-24 07:02] LABS: #Eosinphils 0.1 thou/uL (0.0-0.7); #Lymphocytes 1.7 thou/uL (1.20-3.40); #Monocytes 0.7 thou/uL (0.11-0.59); #Neutrophils 8.4 thou/uL (1.40-6.50); %Basophils 0.2 % (0.0-1.0); %Eosinophils 0.8 % (0.0-10.0); %Lymphocytes 15.5 % (21.0-51.0); %Monocytes 6.2 % (0.0-10.0); %Neutrophils 77.3 % (42.0-75.0); Hemoglobin 13.5 g/dL (12.0-16.0); Mean Corpuscular HGB CONC 30.1 g/dL (32.0-36.0); Mean Corpuscular Volume 76.3 fl (78.0-98.0); Mean Platelet Volume 13.3 fL (7.4-10.4); Platelet Count 112 10x3/uL (130-400); RBC Distribution Width 14.7 % (11.5-14.5); White Blood Cell (WBC) Count 10.9 10x3/uL (4.8-10.8)
[2022-10-24 07:18] LABS: Anion Gap 13 mmol/L (10-20); BUN (Urea Nitrogen) 49 mg/dL (9.8-20.1); Calc. Creatinine Clearance 37 mL/min (70-130); Carbon Dioxide 27 mmol/L (23-31); Chloride 120 mmol/L (98-107); Estimated GFR 53; Glucose 394 mg/dL (83-110); Potassium 4.1 mmol/L (3.5-5.1)
[2022-10-24 07:30] LABS: Sodium 156 mmol/L (136-145)
[2022-10-24] MEDS ORDERED: Metoprolol Tartrate 25 MG TAB ONE (08:39)
[2022-10-24] MEDS ORDERED: Vancomycin HCl 1 GM in Sodium Chloride 0.9% 250 ML 300 ML IVPB SCH (09:00)
[2022-10-24] MEDS: Saccharomyces boulardii 250 MG CAP PER TUBE SCH (09:26)
[2022-10-24] MEDS: Metoprolol Tartrate 25 MG TAB PER TUBE SCH ×2 (09:26→23:10)
[2022-10-24] MEDS: Polyethylene Glycol 3350 17 GM Packet PER TUBE SCH (09:29)
[2022-10-24] MEDS: Multivits W-Minerals Liquid 15 ML LIQ PER TUBE SCH (09:29)
[2022-10-24] MEDS ORDERED: Dextrose 5% in Water 1,000 ML IV SCH (09:45)
[2022-10-24] MEDS: Heparin 5,000 UNITS/ML VIAL SC SCH ×3 (10:25→23:09)
[2022-10-24] MEDS ORDERED: Insulin Glargine 30 UNITS/0.3 ML VIAL SC SCH (13:05)
[2022-10-24 14:52] LABS: Anion Gap 12 mmol/L (10-20); BUN (Urea Nitrogen) 40 mg/dL (9.8-20.1); Calc. Creatinine Clearance 37 mL/min (70-130); Calcium 9.4 mg/dL (7.8-10.44); Carbon Dioxide 29 mmol/L (23-31); Chloride 114 mmol/L (98-107); Estimated GFR 53; Glucose 329 mg/dL (83-110); Potassium 3.9 mmol/L (3.5-5.1)
[2022-10-24 15:02] LABS: Sodium 151 mmol/L (136-145)
[2022-10-24 16:35] LABS: Anion Gap 17 mmol/L (10-20); BUN (Urea Nitrogen) 36 mg/dL (9.8-20.1); Calc. Creatinine Clearance 39 mL/min (70-130); Calcium 9.1 mg/dL (7.8-10.44); Carbon Dioxide 21 mmol/L (23-31); Chloride 117 mmol/L (98-107); Estimated GFR 58; Glucose 271 mg/dL (83-110); Potassium 4.6 mmol/L (3.5-5.1); Sodium 150 mmol/L (136-145)
[2022-10-24 19:11] LABS: Anion Gap 13 mmol/L (10-20); BUN (Urea Nitrogen) 31 mg/dL (9.8-20.1); Calc. Creatinine Clearance 48 mL/min (70-130); Calcium 8.8 mg/dL (7.8-10.44); Carbon Dioxide 24 mmol/L (23-31); Chloride 116 mmol/L (98-107); Estimated GFR 74; Glucose 178 mg/dL (83-110); Potassium 3.9 mmol/L (3.5-5.1); Sodium 149 mmol/L (136-145)
[2022-10-24 19:30] LABS: Vancomycin, Trough 6.5 ug/mL
[2022-10-24] MEDS ORDERED: Cefepime 1 GM in Sodium Chloride 0.9% 100 ML IVPB SCH (21:00)
[2022-10-24] MEDS: Insulin Glargine 30 UNITS/0.3 ML VIAL SC SCH (23:09)
[2022-10-24] MEDS: Famotidine 20 MG TAB PER TUBE SCH (23:09)
[2022-10-25] MEDS: Vancomycin 1 GM in Premix Bag 1 BAG IVPB SCH (01:18)
[2022-10-25 04:24] LABS: Anion Gap 14 mmol/L (10-20); BUN (Urea Nitrogen) 34 mg/dL (9.8-20.1); Calc. Creatinine Clearance 41 mL/min (70-130); Carbon Dioxide 25 mmol/L (23-31); Chloride 112 mmol/L (98-107); Potassium 3.7 mmol/L (3.5-5.1); Sodium 147 mmol/L (136-145)
[2022-10-25 04:25] LABS: Calcium 8.6 mg/dL (7.8-10.44); Estimated GFR 61; Glucose 364 mg/dL (83-110)
[2022-10-25] MEDS: HumaLOG 300 UNITS/3 ML VIAL SC PRN ×5 (04:49→22:19)
[2022-10-25] MEDS: Heparin 5,000 UNITS/ML VIAL SC SCH ×3 (10:55→21:46)
[2022-10-25] MEDS: Saccharomyces boulardii 250 MG CAP PER TUBE SCH (10:56)
[2022-10-25] MEDS: Metoprolol Tartrate 25 MG TAB PER TUBE SCH ×2 (10:56→21:43)
[2022-10-25] MEDS: Polyethylene Glycol 3350 17 GM Packet PER TUBE SCH (10:56)
[2022-10-25] MEDS: Insulin Glargine 30 UNITS/0.3 ML VIAL SC SCH ×2 (10:57→21:43)
[2022-10-25 11:56] VITALS: BMI 17.9
[2022-10-25] MEDS: Multivits W-Minerals Liquid 15 ML LIQ PER TUBE SCH (13:50)
[2022-10-25 15:17] LABS: Anion Gap 19 mmol/L (10-20); BUN (Urea Nitrogen) 45 mg/dL (9.8-20.1); Calc. Creatinine Clearance 38 mL/min (70-130); Calcium 9.2 mg/dL (7.8-10.44); Carbon Dioxide 17 mmol/L (23-31); Chloride 113 mmol/L (98-107); Estimated GFR 56; Glucose 304 mg/dL (83-110); Potassium 5.2 mmol/L (3.5-5.1); Sodium 144 mmol/L (136-145)
[2022-10-25 16:52] LABS: Anion Gap 15 mmol/L (10-20); BUN (Urea Nitrogen) 43 mg/dL (9.8-20.1); Calc. Creatinine Clearance 33 mL/min (70-130); Calcium 8.5 mg/dL (7.8-10.44); Carbon Dioxide 23 mmol/L (23-31); Chloride 110 mmol/L (98-107); Estimated GFR 47; Glucose 379 mg/dL (83-110); Potassium 4.3 mmol/L (3.5-5.1); Sodium 144 mmol/L (136-145)
[2022-10-25] MEDS ORDERED: HumaLOG 300 UNITS/3 ML VIAL SC SCH (17:30)
[2022-10-25] MEDS ORDERED: hydrALAZINE 20 MG/ML VIAL SLOW IVP PRN (17:30)
[2022-10-25] MEDS: Cefepime 1 GM in Sodium Chloride 0.9% 100 ML IVPB SCH (21:42)
[2022-10-25] MEDS: Sodium Bicarbonate Tab 325 MG TAB PO SCH (21:44)
[2022-10-25] MEDS: Famotidine 20 MG TAB PER TUBE SCH (21:46)
[2022-10-26] MEDS: Vancomycin 1 GM in Premix Bag 1 BAG IVPB SCH ×2 (00:28→23:47)
[2022-10-26 04:47] LABS: #Basophils 0.1 thou/uL (0.0-0.2); #Eosinphils 0.3 thou/uL (0.0-0.7); #Lymphocytes 5.2 thou/uL (1.20-3.40); #Neutrophils 9.2 thou/uL (1.40-6.50); %Basophils 0.5 % (0.0-1.0); %Eosinophils 2.1 % (0.0-10.0); %Monocytes 6.2 % (0.0-10.0); %Neutrophils 58.2 % (42.0-75.0); Mean Corpuscular HGB CONC 32.5 g/dL (32.0-36.0); Mean Corpuscular Hemoglobin 24.2 pg (27.0-31.0); Mean Corpuscular Volume 74.6 fl (78.0-98.0); Mean Platelet Volume 15.7 fL (7.4-10.4); Platelet Count 125 10x3/uL (130-400); RBC Distribution Width 14.5 % (11.5-14.5); Red Blood Cell (RBC) Count 5.77 mill/uL (4.20-5.40); White Blood Cell (WBC) Count 15.8 10x3/uL (4.8-10.8)
[2022-10-26 10:15] LABS: Albumin 2.7 g/dL (3.4-4.8)
[2022-10-26 10:17] LABS: Calcium 9.3 mg/dL (7.8-10.44); Chloride 110 mmol/L (98-107); Potassium 4.7 mmol/L (3.5-5.1); Sodium 148 mmol/L (136-145)
[2022-10-26 10:18] LABS: Globulin 4.4 g/dL (2.4-3.5); Glucose 133 mg/dL (83-110); Protein, Total 7.1 g/dL (5.8-8.1)
[2022-10-26 10:19] LABS: Anion Gap 15 mmol/L (10-20); Carbon Dioxide 28 mmol/L (23-31)
[2022-10-26 10:20] LABS: Bilirubin, Total 0.3 mg/dL (0.2-1.2)
[2022-10-26 10:21] LABS: Alkaline Phosphatase 58 U/L (40-110); Calc. Creatinine Clearance 46 mL/min (70-130); Estimated GFR 69
[2022-10-26 10:22] LABS: BUN (Urea Nitrogen) 44 mg/dL (9.8-20.1)
[2022-10-26 10:23] LABS: AST (SGOT) 37 U/L (5-34)
[2022-10-26 10:24] LABS: ALT (SGPT) 8 U/L (8-55); Magnesium 2.4 mg/dL (1.6-2.6)
[2022-10-26 10:27] LABS: Anion Gap 15 mmol/L (10-20); BUN (Urea Nitrogen) 44 mg/dL (9.8-20.1); Calc. Creatinine Clearance 46 mL/min (70-130); Calcium 9.2 mg/dL (7.8-10.44); Carbon Dioxide 26 mmol/L (23-31); Chloride 108 mmol/L (98-107); Estimated GFR 69; Glucose 132 mg/dL (83-110); Potassium 4.3 mmol/L (3.5-5.1); Sodium 145 mmol/L (136-145)
[2022-10-26] MEDS: Saccharomyces boulardii 250 MG CAP PER TUBE SCH (10:38)
[2022-10-26] MEDS: Sodium Bicarbonate Tab 325 MG TAB PO SCH ×2 (10:38→14:20)
[2022-10-26] MEDS: Polyethylene Glycol 3350 17 GM Packet PER TUBE SCH (10:38)
[2022-10-26] MEDS: Insulin Glargine 30 UNITS/0.3 ML VIAL SC SCH ×2 (10:38→21:06)
[2022-10-26] MEDS: Cefepime 1 GM in Sodium Chloride 0.9% 100 ML IVPB SCH ×2 (10:40→21:03)
[2022-10-26] MEDS: Heparin 5,000 UNITS/ML VIAL SC SCH ×3 (10:40→21:10)
[2022-10-26] MEDS: Multivits W-Minerals Liquid 15 ML LIQ PER TUBE SCH (10:41)
[2022-10-26] MEDS: Metoprolol Tartrate 25 MG TAB PER TUBE SCH ×2 (10:42→21:06)
[2022-10-26] MEDS ORDERED: Dextrose 5%-Lactated Ringers 1,000 ML IV SCH (13:30)
[2022-10-26] MEDS ORDERED: Dextrose 5 %-0.45 % NaCl 1,000 ML IV SCH (15:45)
[2022-10-26] MEDS: HumaLOG 300 UNITS/3 ML VIAL SC PRN ×2 (16:26→21:08)
[2022-10-26] MEDS: Famotidine 20 MG TAB PER TUBE SCH (21:05)
[2022-10-27] MEDS: HumaLOG 300 UNITS/3 ML VIAL SC PRN ×4 (05:53→20:08)
[2022-10-27 07:29] LABS: Hemoglobin 12.2 g/dL (12.0-16.0); Mean Corpuscular HGB CONC 31.6 g/dL (32.0-36.0); Mean Corpuscular Volume 75.8 fl (78.0-98.0); RBC Distribution Width 14.4 % (11.5-14.5); Red Blood Cell (RBC) Count 5.09 mill/uL (4.20-5.40)
[2022-10-27 08:16] LABS: Albumin 2.5 g/dL (3.4-4.8); Anion Gap 18 mmol/L (10-20); BUN (Urea Nitrogen) 35 mg/dL (9.8-20.1); BUN/Creatinine Ratio 41.18; Calc. Creatinine Clearance 48 mL/min (70-130); Calcium 9.1 mg/dL (7.8-10.44); Carbon Dioxide 21 mmol/L (23-31); Chloride 108 mmol/L (98-107); Estimated GFR 73; Glucose 311 mg/dL (83-110); Magnesium 2.3 mg/dL (1.6-2.6); Phosphorus 2.1 mg/dL (2.3-4.7); Potassium 4.7 mmol/L (3.5-5.1); Sodium 142 mmol/L (136-145)
[2022-10-27] MEDS: Polyethylene Glycol 3350 17 GM Packet PER TUBE SCH (08:44)
[2022-10-27] MEDS: cefTRIAXone\\ROCEPHIN 1 GM in Sodium Chloride 0.9% 100 ML IVPB SCH (08:44)
[2022-10-27] MEDS: Heparin 5,000 UNITS/ML VIAL SC SCH ×3 (08:44→20:16)
[2022-10-27] MEDS: Insulin Glargine 30 UNITS/0.3 ML VIAL SC SCH ×2 (08:46→20:07)
[2022-10-27] MEDS: Metoprolol Tartrate 25 MG TAB PER TUBE SCH ×2 (08:46→20:07)
[2022-10-27] MEDS: Saccharomyces boulardii 250 MG CAP PER TUBE SCH (08:46)
[2022-10-27] MEDS ORDERED: FLU VACC QS2022-23(65YR UP)/PF 240 MCG/0.7 ML SYRINGE IM ONE (09:00)
[2022-10-27 10:01] LABS: #Eosinphils 0.2 thou/uL (0.0-0.7); #Lymphocytes 1.8 thou/uL (1.20-3.40); #Monocytes 0.5 thou/uL (0.11-0.59); #Neutrophils 5.6 thou/uL (1.40-6.50); %Basophils 0.3 % (0.0-1.0); %Eosinophils 2.6 % (0.0-10.0); %Lymphocytes 22.6 % (21.0-51.0); %Monocytes 5.7 % (0.0-10.0); %Neutrophils 68.8 % (42.0-75.0); Lymphocytes 12 % (21-51); MDiff Complete? YES; Mean Platelet Volume 17.4 fL (7.4-10.4); Monocytes 6 % (0-10); Neutrophil 82 % (42-75); Platelet Count 145 10x3/uL (130-400); Platelet Morphology Comment Appears Adequate; White Blood Cell (WBC) Count 8.1 10x3/uL (4.8-10.8)
[2022-10-27] MEDS: Multivits W-Minerals Liquid 15 ML LIQ PER TUBE SCH (12:17)
[2022-10-27] MEDS: Famotidine 20 MG TAB PER TUBE SCH (20:07)
[2022-10-28] MEDS: HumaLOG 300 UNITS/3 ML VIAL SC PRN ×3 (06:21→16:34)
[2022-10-28] MEDS: Multivits W-Minerals Liquid 15 ML LIQ PER TUBE SCH (08:09)
[2022-10-28] MEDS: cefTRIAXone\\ROCEPHIN 1 GM in Sodium Chloride 0.9% 100 ML IVPB SCH (08:09)
[2022-10-28] MEDS: Polyethylene Glycol 3350 17 GM Packet PER TUBE SCH (08:13)
[2022-10-28] MEDS: Heparin 5,000 UNITS/ML VIAL SC SCH ×2 (08:14→14:34)
[2022-10-28] MEDS: Metoprolol Tartrate 25 MG TAB PER TUBE SCH (08:14)
[2022-10-28] MEDS: Saccharomyces boulardii 250 MG CAP PER TUBE SCH (08:14)
[2022-10-28] MEDS: Insulin Glargine 30 UNITS/0.3 ML VIAL SC SCH (08:14)
[2022-10-28 16:10] VITALS: BP 160/80; TEMP 98
== END 2022-10-28 17:06 | DRG 871 ==
LOC: ATHWELL 20:05 → ERHOLD 10-24 00:46 → 2NO 10-24 13:40 → T4-B 10-26 18:17
PROVIDERS: ADMIT Student in an Organized Health Care Education/Training Program; ATTEND Internal Medicine
DX: A41.9 Sepsis, unspecified organism (principal); E43 Unspecified severe protein-calorie malnutrition; G93.41 Metabolic encephalopathy; R64 Cachexia; E87.0 Hyperosmolality and hypernatremia; N17.9 Acute kidney failure, unspecified; Z68.1 Body mass index [BMI] 19.9 or less, adult; N39.0 Urinary tract infection, site not specified; E87.20 Acidosis, unspecified; Z66 Do not resuscitate; G40.909 Epilepsy, unspecified, not intractable, without status epilepticus; K21.9 Gastro-esophageal reflux disease without esophagitis; D53.9 Nutritional anemia, unspecified; E11.65 Type 2 diabetes mellitus with hyperglycemia; E86.0 Dehydration; N18.30 Chronic kidney disease, stage 3 unspecified; I12.9 Hypertensive chronic kidney disease with stage 1 through stage 4 chronic kidney disease, or unspecified chronic kidney disease; E11.22 Type 2 diabetes mellitus with diabetic chronic kidney disease; I69.920 Aphasia following unspecified cerebrovascular disease; Z79.899 Other long term (current) drug therapy
CPT/HCPCS: 36415; 36416; 71045; 80048; 80053; 80069; 80202; 80306; 80307; 81003; 81015; 82010; 82805; 83605; 83690; 83735; 85025; 87040; 93005; 96374; 96375; 97139; J0692; J0696; J1644; J1815; J3370; J3370-JW; J3490; J7042; J7050; J7070

== ENCOUNTER 2023-02-24 12:11 | Emergency (ER) | payer MEDICARE, OTHER | END 2023-02-24 15:09 | disposition home or self-care (01) | LOC: ERS 12:11 | DX: K94.23 Gastrostomy malfunction (principal); E11.9 Type 2 diabetes mellitus without complications; I10 Essential (primary) hypertension; E78.2 Mixed hyperlipidemia; Z79.899 Other long term (current) drug therapy; Z79.02 Long term (current) use of antithrombotics/antiplatelets; Z79.84 Long term (current) use of oral hypoglycemic drugs | CPT/HCPCS: 43762; 74018 ==

== ENCOUNTER 2023-03-16 17:07 | Inpatient (IN) | payer MEDICARE, MEDICAID ==
[2023-03-16 18:36] LABS: #Basophils 0.1 thou/uL (0.0-0.2); #Eosinphils 0.2 thou/uL (0.0-0.7); #Monocytes 0.5 thou/uL (0.11-0.59); #Neutrophils 3.4 thou/uL (1.40-6.50); %Basophils 0.8 % (0.0-1.0); %Eosinophils 2.7 % (0.0-10.0); %Lymphocytes 34.8 % (21.0-51.0); %Monocytes 7.7 % (0.0-10.0); %Neutrophils 53.7 % (42.0-75.0); Hemoglobin 13.4 g/dL (12.0-16.0); Mean Corpuscular Hemoglobin 21.9 pg (27.0-31.0); Mean Corpuscular Volume 75.6 fl (78.0-98.0); RBC Distribution Width 16.6 % (11.5-14.5); Red Blood Cell (RBC) Count 6.11 mill/uL (4.20-5.40); White Blood Cell (WBC) Count 6.3 10x3/uL (4.8-10.8)
[2023-03-16 18:49] LABS: Platelet Count 124 10x3/uL (130-400)
[2023-03-16 18:55] LABS: ALT (SGPT) 8 U/L (8-55); AST (SGOT) 22 U/L (5-34); Albumin 3.7 g/dL (3.4-4.8); Alkaline Phosphatase 83 U/L (40-110); Anion Gap 13 mmol/L (10-20); BUN (Urea Nitrogen) 28 mg/dL (9.8-20.1); Bilirubin, Total 0.2 mg/dL (0.2-1.2); Calc. Creatinine Clearance 0 mL/min (70-130); Calcium 10.2 mg/dL (7.8-10.44); Carbon Dioxide 25 mmol/L (23-31); Chloride 103 mmol/L (98-107); Estimated GFR 65; Globulin 4.6 g/dL (2.4-3.5); Glucose 158 mg/dL (83-110); Potassium 4.8 mmol/L (3.5-5.1); Protein, Total 8.3 g/dL (5.8-8.1); Sodium 136 mmol/L (136-145)
[2023-03-16] MEDS ORDERED: Dextrose 50% Abboject 50 ML SYRINGE SLOW IVP PRN (19:18)
[2023-03-16] MEDS ORDERED: HumaLOG 300 UNITS/3 ML VIAL SC PRN (19:18)
[2023-03-16] MEDS ORDERED: Ondansetron PF 4 MG/2 ML Vial IVP PRN (19:18)
[2023-03-16] MEDS ORDERED: Glucagon 1 MG/ML KIT IM PRN (19:18)
[2023-03-16] MEDS ORDERED: Acetaminophen 650 MG Suppository PR PRN (19:18)
[2023-03-16] MEDS ORDERED: Dextrose 5% in Water 1,000 ML IV PRN (19:18)
[2023-03-17 06:10] LABS: #Basophils 0.1 thou/uL (0.0-0.2); #Eosinphils 0.2 thou/uL (0.0-0.7); #Monocytes 0.6 thou/uL (0.11-0.59); #Neutrophils 3.5 thou/uL (1.40-6.50); %Eosinophils 3.7 % (0.0-10.0); %Lymphocytes 28.3 % (21.0-51.0); %Monocytes 10.1 % (0.0-10.0); %Neutrophils 56.6 % (42.0-75.0); Hemoglobin 12.1 g/dL (12.0-16.0); Mean Corpuscular HGB CONC 29.4 g/dL (32.0-36.0); Mean Corpuscular Hemoglobin 21.8 pg (27.0-31.0); Mean Corpuscular Volume 74.4 fl (78.0-98.0); Platelet Count 177 10x3/uL (130-400); Red Blood Cell (RBC) Count 5.54 mill/uL (4.20-5.40); White Blood Cell (WBC) Count 6.2 10x3/uL (4.8-10.8)
[2023-03-17 06:40] LABS: Anion Gap 14 mmol/L (10-20); BUN (Urea Nitrogen) 21 mg/dL (9.8-20.1); Calc. Creatinine Clearance 47 mL/min (70-130); Calcium 9.9 mg/dL (7.8-10.44); Carbon Dioxide 26 mmol/L (23-31); Chloride 104 mmol/L (98-107); Estimated GFR 73; Glucose 142 mg/dL (83-110); Potassium 4.8 mmol/L (3.5-5.1); Sodium 139 mmol/L (136-145)
[2023-03-17 06:53] LABS: CellaVision Operator ID lab.abc; Hypochromia SLIGHT = 6-15 cells HPF (0-5); Large Platelets 8.8 % (0-5); Microcytosis SLIGHT = 6-15 cells HPF (0-5); Platelet Adequacy Comment Platelets Normal; Polychromasia SLIGHT = 2-3 cells HPF (0-2); Smudge Cells 12.7 %
[2023-03-17] MEDS: Dextrose 5 % And 0.9 % NaCl 1,000 ML IV SCH (14:05)
[2023-03-18] MEDS: Dextrose 5 % And 0.9 % NaCl 1,000 ML IV SCH (08:32)
[2023-03-18 08:44] LABS: #Eosinphils 0.2 thou/uL (0.0-0.7); #Monocytes 0.6 thou/uL (0.11-0.59); #Neutrophils 3.8 thou/uL (1.40-6.50); %Basophils 0.7 % (0.0-1.0); %Eosinophils 2.9 % (0.0-10.0); %Lymphocytes 24.2 % (21.0-51.0); %Monocytes 9.5 % (0.0-10.0); %Neutrophils 62.5 % (42.0-75.0); Hemoglobin 11.7 g/dL (12.0-16.0); Mean Corpuscular HGB CONC 29.4 g/dL (32.0-36.0); Mean Corpuscular Hemoglobin 21.8 pg (27.0-31.0); Mean Corpuscular Volume 74.3 fl (78.0-98.0); Platelet Count 180 10x3/uL (130-400); Red Blood Cell (RBC) Count 5.36 mill/uL (4.20-5.40); White Blood Cell (WBC) Count 6.1 10x3/uL (4.8-10.8)
[2023-03-18] MEDS ORDERED: CEFAZOLIN 2 GM VIAL ONE (08:54)
[2023-03-18] MEDS ORDERED: Sodium Chloride 0.9% 100 ML ONE (08:54)
[2023-03-18 08:59] LABS: Anion Gap 12 mmol/L (10-20); BUN (Urea Nitrogen) 12 mg/dL (9.8-20.1); Calc. Creatinine Clearance 50 mL/min (70-130); Calcium 9.7 mg/dL (7.8-10.44); Carbon Dioxide 25 mmol/L (23-31); Chloride 108 mmol/L (98-107); Estimated GFR 78; Glucose 189 mg/dL (83-110); Potassium 3.7 mmol/L (3.5-5.1); Sodium 141 mmol/L (136-145)
[2023-03-18] MEDS ORDERED: fentaNYL 50 mcg/mL 1 mL Vial ONE (09:10)
[2023-03-18] MEDS ORDERED: PROPOFOL 200 MG/20 ML VIAL ONE (09:15)
[2023-03-18] MEDS ORDERED: Labetalol HCl 100 MG/20 ML VIAL ONE (09:15)
[2023-03-18 09:31] LABS: Hypochromia SLIGHT = 6-15 cells HPF (0-5); Microcytosis SLIGHT = 6-15 cells HPF (0-5); Ovalocytes SLIGHT = 2-5 cells HPF (0-1); Platelet Adequacy Comment Platelets Normal; Polychromasia SLIGHT = 2-3 cells HPF (0-2); Tear Drops SLIGHT = 2-5 cells HPF (0-1)
[2023-03-18 14:53] VITALS: BMI 21.7
[2023-03-18] MEDS ORDERED: Acetaminophen 650 MG/20.3 ML UDCUP PER TUBE PRN (17:30)
[2023-03-18] MEDS: hydrALAZINE 20 MG/ML VIAL SLOW IVP PRN (17:36)
[2023-03-18] MEDS: traMADol HCl 50 MG TAB PO PRN (18:33)
[2023-03-18] MEDS: Lisinopril 10 MG TAB PER TUBE SCH (20:47)
[2023-03-19 06:21] LABS: #Basophils 0.1 thou/uL (0.0-0.2); #Eosinphils 0.3 thou/uL (0.0-0.7); #Monocytes 0.9 thou/uL (0.11-0.59); #Neutrophils 5.3 thou/uL (1.40-6.50); %Basophils 0.6 % (0.0-1.0); %Eosinophils 3.3 % (0.0-10.0); %Lymphocytes 17.3 % (21.0-51.0); %Monocytes 11.3 % (0.0-10.0); %Neutrophils 67.1 % (42.0-75.0); Hemoglobin 11.4 g/dL (12.0-16.0); Mean Corpuscular HGB CONC 29.5 g/dL (32.0-36.0); Mean Corpuscular Hemoglobin 21.9 pg (27.0-31.0); Mean Corpuscular Volume 74.4 fl (78.0-98.0); Platelet Count 185 10x3/uL (130-400); White Blood Cell (WBC) Count 7.9 10x3/uL (4.8-10.8)
[2023-03-19] MEDS: traMADol HCl 50 MG TAB PO PRN ×2 (10:54→18:22)
[2023-03-19 13:21] LABS: Anion Gap 18 mmol/L (10-20); BUN (Urea Nitrogen) 18 mg/dL (9.8-20.1); Calc. Creatinine Clearance 34 mL/min (70-130); Calcium 9.9 mg/dL (7.8-10.44); Carbon Dioxide 18 mmol/L (23-31); Chloride 109 mmol/L (98-107); Estimated GFR 49; Glucose 192 mg/dL (83-110); Potassium 4.2 mmol/L (3.5-5.1); Sodium 141 mmol/L (136-145)
[2023-03-19] MEDS: hydrALAZINE 20 MG/ML VIAL SLOW IVP PRN (17:42)
[2023-03-19] MEDS ORDERED: Bisacodyl 10 MG SUPP PR PRN (20:37)
[2023-03-19] MEDS: Lisinopril 10 MG TAB PER TUBE SCH (20:42)
[2023-03-20] MEDS ORDERED: Bisacodyl 10 MG SUPP PR SCH (09:30)
[2023-03-20] MEDS: HumaLOG 300 UNITS/3 ML VIAL SC PRN ×2 (12:49→17:03)
[2023-03-20 19:46] VITALS: BP 170/90; TEMP 98.2
== END 2023-03-20 17:22 | DRG 394 ==
LOC: ERS 17:07 → T4-B 18:27 → OBSVTOIN 03-18 11:13
PROVIDERS: ADMIT Internal Medicine; ATTEND Internal Medicine
PROC: 0DH63UZ Insertion of Feeding Device into Stomach, Percutaneous Approach (ICD-10-PCS; principal; 2023-03-18)
PROC: 0DP6XUZ Removal of Feeding Device from Stomach, External Approach (ICD-10-PCS; 2023-03-18)
PROC: 3E0G76Z Introduction of Nutritional Substance into Upper GI, Via Natural or Artificial Opening (ICD-10-PCS; 2023-03-18)
PROC: 0DJ08ZZ Inspection of Upper Intestinal Tract, Via Natural or Artificial Opening Endoscopic (ICD-10-PCS; 2023-03-18)
DX: K94.23 Gastrostomy malfunction (principal); E44.0 Moderate protein-calorie malnutrition; I69.354 Hemiplegia and hemiparesis following cerebral infarction affecting left non-dominant side; E11.9 Type 2 diabetes mellitus without complications; I10 Essential (primary) hypertension; R13.12 Dysphagia, oropharyngeal phase; F32.A Depression, unspecified; K21.00 Gastro-esophageal reflux disease with esophagitis, without bleeding; G43.909 Migraine, unspecified, not intractable, without status migrainosus; F03.90 Unspecified dementia, unspecified severity, without behavioral disturbance, psychotic disturbance, mood disturbance, and anxiety; R62.7 Adult failure to thrive; D53.9 Nutritional anemia, unspecified; I69.320 Aphasia following cerebral infarction; Z79.02 Long term (current) use of antithrombotics/antiplatelets; Z79.899 Other long term (current) drug therapy; Z90.710 Acquired absence of both cervix and uterus; Z98.51 Tubal ligation status; Z90.49 Acquired absence of other specified parts of digestive tract; Z79.84 Long term (current) use of oral hypoglycemic drugs; Z68.21 Body mass index [BMI] 21.0-21.9, adult; I69.391 Dysphagia following cerebral infarction
CPT/HCPCS: 36415; 36416; 43762; 74018; 80048; 80053; 85025; G0378; J0360; J1815; J2704; J3010; J3490; J7042